=== PATIENT | male | born 1965 | race Two or more races ===

== ENCOUNTER 2016-12-28 01:57 | Emergency (ER) | payer OTHER, SELFPAY ==
[~2016-12-28] VITALS: Ht 182.9 cm; Wt 81.8 kg
[2016-12-28] MEDS ORDERED: KEPP1TAB2 PO (02:14)
[2016-12-28] MEDS ORDERED: ALLO100T PO (02:14)
[2016-12-28] MEDS ORDERED: LISI40TAB PO (02:14)
[2016-12-28] MEDS ORDERED: PRAV40TA2 PO (02:14)
[2016-12-28] MEDS ORDERED: METO1TAB32 PO (02:14)
[2016-12-28] MEDS ORDERED: MORPHINE 4 MG/ML 1ML SYRINGE SC ONE (04:45)
[2016-12-28] MEDS ORDERED: ONDANSETRON 4 MG ORAL DISINTEGRATING TAB (S0181) PO ONE (04:45)
[2016-12-28] MEDS ORDERED: METAL LOCK LOOP XX ONE (04:47)
[2016-12-28] MEDS ORDERED: LIDOCAINE W/EPINEPHRINE 1% 20ML VIAL As Ordered ONE (05:05)
[2016-12-28] MEDS ORDERED: BUPIVACAINE HCL 0.5% 10 ML VIAL As Ordered ONE (05:05)
[2016-12-28] MEDS ORDERED: NORCOTAB PO (06:02)
[2016-12-28] MEDS ORDERED: NORCO 5/325MG TABLET (BULK FOR ED) PO ONE (06:15)
[2016-12-28 06:20] VITALS: BP 137/83
== END 2016-12-28 06:21 | disposition home or self-care (01) ==
LOC: M ED 01:57
DX: S51.811A Laceration without foreign body of right forearm, initial encounter (principal); I10 Essential (primary) hypertension; E78.5 Hyperlipidemia, unspecified; R56.9 Unspecified convulsions; F17.210 Nicotine dependence, cigarettes, uncomplicated; W26.9XXA Contact with unspecified sharp object(s), initial encounter; Y92.010 Kitchen of single-family (private) house as the place of occurrence of the external cause; Y99.9 Unspecified external cause status; Y93.9 Activity, unspecified; Z79.899 Other long term (current) drug therapy; Z88.4 Allergy status to anesthetic agent

== ENCOUNTER 2017-02-02 01:29 | Emergency (ER) | payer OTHER ==
[~2017-02-02] VITALS: Ht 182.9 cm; Wt 81.8 kg
[~2017-02-02 01:29] MED LIST: ALLO100T PO; KEPP1TAB2 PO; LISI40TAB PO; METO1TAB32 PO; NORCOTAB PO; PRAV40TA2 PO
[2017-02-02 01:45] VITALS: BP 129/91
[2017-02-02] MEDS ORDERED: TIZA4CAP3 PO (01:48)
== END 2017-02-02 02:27 | disposition home or self-care (01) ==
LOC: M ED 01:29
DX: F41.8 Other specified anxiety disorders (principal); I10 Essential (primary) hypertension; G40.909 Epilepsy, unspecified, not intractable, without status epilepticus; Z79.899 Other long term (current) drug therapy; Z88.6 Allergy status to analgesic agent

== ENCOUNTER → 2017-03-23 | Outpatient (CLI) | payer OTHER ==
[~2017-03-23] MED LIST changes: +BUPIVACAINE HCL 0.25% 30 ML VIAL As Ordered ONE; +ISOVUE-M 300 61% 15ML VIAL (Q9967) As Ordered ONE; +TIZA4CAP3 PO; +TRIAMCINOLONE ACETONIDE SUSP 40 MG/ML VIAL (J3301) As Ordered ONE; +diazePAM 5 MG TAB As Ordered ONE; +oxyCODONE 5MG TAB As Ordered ONE
--- NOTE | 2017-03-23 16:57 | REP ---
FLUOROSCOPIC GUIDANCE: The images were reviewed with Dr. Baker. The patient has a history of low back pain. The portable C-ARM was provided in the OR by Dr. Solomon for fluoroscopic guidance. 4 intraoperative fluoroscopic spot films were obtained using last image hold technology for needle placement verification for left SI joint injection. The films are on the PACS system and are available for review. 15 seconds of fluoroscopic time was utilized for this procedure. Reviewed by NICOL Sandra 03/24/2017 02:47 PEdited and Signed by Esvin Baker MD 03/24/2017 05:03 P
--- NOTE | 2017-03-28 23:35 | ECWPNPC ---
PATIENT NAME: ELLY VILLALPANDO : 1965 GENDER: MALE VISIT DATE: 03/23/2017 DISCHARGE DATE: 03/23/17 1238 VISIT LOCKED DATE TIME: PHYSICIAN: GONZALEZ DICKERSON RESOURCE: GONZLAEZ DICKERSON REASON FOR APPOINTMENT 1. LEFT SIJ INJECTION HISTORY OF PRESENT ILLNESS HISTORY OF PRESENT ILLNESS: PAIN THE PATIENT DESCRIBES THE PAIN... FALL RISK SCREENING: SCREENING :NO FALLS IN THE PAST YEAR CURRENT MEDICATIONS TAKING ALLOPURINOL 100 MG TABLET 1 TABLET ORALLY TWICE A DAY, NOTES: 03-23-17699 TAKING AMLODIPINE BESYLATE 10 MG TABLET 1/2 TABLET ORALLY ONCE A DAY, NOTES: 03-23-17699 TAKING METOPROLOL SUCCINATE 50 MG TABLET EXTENDED RELEASE ORALLY DAILY, NOTES: OUT OF MED TAKING PRAVASTATIN SODIUM 40 MG TABLET 1 TABLET ORALLY ONCE A DAY, NOTES: [id number] TAKING TIZANIDINE HCL 2 MG TABLET 1 TABLET NEEDED ORALLY THREE TIMES A DAY, NOTES: [id number] TAKING GABAPENTIN 600 MG TABLET 1 TABLET ORALLY THREE TIMES A DAY, NOTES: 03-23-17699 TAKING LISINOPRIL 40 MG TABLET 1 TABLET ORALLY ONCE A DAY, NOTES: 03-23-17699 TAKING LEVETIRACETAM 500 MG TABLET 2 TABLETS ORALLY DAILY, NOTES: 03-22-172099 MEDICATION LIST REVIEWED AND RECONCILED WITH THE PATIENT PAST MEDICAL HISTORY HYPERTENSIVE CARDIAC VASCULAR DISEASE TACHYCARDIA MIXED HYPERLIPIDEMIA TRAUMATIC BRAIN INJURY R/T ENCEPHALITIS IN 10/2015 DJD OF LUMBAR SPINE ALLERGIES XYLOCAINE: INCREASED HR: ALLERGY SOCIAL HISTORY GENERAL: TOBACCO USE ARE YOU A:NONSMOKER ALCOHOL SCREENING DID YOU HAVE A DRINK CONTAINING ALCOHOL IN THE PAST YEAR?YES HOW OFTEN DID YOU HAVE A DRINK CONTAINING ALCOHOL IN THE PAST YEAR?FOUR OR MORE TIMES A WEEK (4 POINTS) HOW MANY DRINKS DID YOU HAVE ON A TYPICAL DAY WHEN YOU WERE DRINKING IN THE PAST YEAR?3 OR 4 (1 POINT) HOW OFTEN DID YOU HAVE SIX OR MORE DRINKS ON ONE OCCASION IN THE PAST YEAR?MONTHLY (2 POINTS) POINTS7 INTERPRETATIONPOSITIVE RECREATIONAL DRUG USE DRUG USE?NO JEW [id number] CONGREGATIONAL LANGUAGE LANGUAGES SPOKEN:FRENCH LEARNING BARRIERS / SPECIAL NEEDS BARRIERS TO LEARNING?NO HEARING IMPAIRED?NO VISION IMPAIRED?NO COGNITIVELY IMPAIRED?NO READINESS TO LEARN?YES LEARNING PREFERENCES?NO LEARNING CAPABILITIES PRESENT?YES EMOTIONAL BARRIERS?NO SPECIAL DEVICES?NO PAINTER SUPERVISOR NEEDED?NO PAIN CLINIC PFS, CLERGY, PUBLIC HEALTH REFERRALS PFS REFERRAL NEEDED?NO CLERGY REFERRAL NEEDED?NO PUBLIC HEALTH REFERRAL NEEDED?NO HAS THE PATIENT BEEN EDUCATED REGARDING HIS/HER PLAN OF CARE?YES HAS THE PATIENT BEEN EDUCATED REGARDING PAIN, THE RISK FOR PAIN, THE IMPORTANCE OF EFFECTIVE PAIN MANAGEMENT, AND THE PAIN ASSESSMENT PROCESS?YES ADVANCE DIRECTIVES HEALTH CARE PROXY?NO WOULD YOU LIKE MORE INFORMATION?NO DO YOU HAVE A DNR?NO WOULD YOU LIKE MORE INFORMATION?NO LIVING WILL?NO WOULD YOU LIKE MORE INFORMATION?NO POWER OF DIGITAL EXPERIENCE MANAGER?NO WOULD YOU LIKE MORE INFORMATION?NO DOMESTIC VIOLENCE DO YOU FEEL SAFE IN YOUR ENVIRONMENT?YES REVIEW OF SYSTEMS REVIEWED BY: PROVIDER: . CONSTITUTIONAL: ANY CHANGE IN YOUR MEDICAL CONDITION? NO . CHILLS NO . FEVER NO . INFECTION: DO YOU HAVE NEW INFECTIONS? NO . DO YOU HAVE HISTORY OF MRSA? NO . MUSCULOSKELETAL: ANY NEW PATTERNS OF PAIN OR NUMBNESS? NO . GASTROENTEROLOGY: ANY NEW CHANGE IN BOWEL CONTROL? NO . GENITOURINARY: ANY NEW CHANGE IN BLADDER CONTROL? NO . IS THERE A CHANCE YOU COULD BE ? NO . HEMATOLOGY/LYMPH: DO YOU TAKE ANY BLOOD THINNERS? (FOR EXAMPLE- COUMADIN, PLAVIX, AGGRENOX, PLATEL, PRADAXA, OR XARELTO) NO . WHEN WAS YOUR LAST DOSE? DATE: TIME: . NEUROLOGY: HAVE YOU FALLEN IN THE PAST 6 MONTHS? YES . ANY NEW EXTREMITY NUMBNESS OR WEAKNESS? NO . CARDIOLOGY: DO YOU HAVE A PACEMAKER OR DEFIBRILLATOR? NO . RESPIRATORY: HAVE YOU BEEN SICK IN THE PAST WEEK? NO . FEVER NO . FLU LIKE SYMPTOMS? NO . COUGH NO . INTEGUMENTARY: DO YOU HAVE ANY RASHES OR OPEN SORES? YES, RASH FROM TENS UNIT PATCHES ON BUTTUCKS . ALLERGIC/IMMUNO: ARE YOU ALLERGIC TO SHELLFISH OR IV DYE? NO . ANY NEW ALLERGIES? NO . PSYCHIATRIC: DO YOU HAVE THOUGHTS OF HURTING YOURSELF OR SOMEONE ELSE? NO . ARE YOU ABUSED, NEGLECTED, OR IN AN UNSAFE ENVIRONMENT? NO . ENDOCRINOLOGY: ARE YOU DIABETIC? NO . OTHER: DO YOU NEED ANY PRESCRIPTIONS? NO . IF YES, PLEASE LIST: ____ . ANY NEW PROBLEMS WITH YOUR MEDICATIONS? NO . WHEN DID YOU LAST EAT? 7PM . WHEN DID YOU LAST DRINK? 03-23-17 0845 . WHAT DID YOU LAST DRINK? WATER . NAME OF PERSON DRIVING YOU HOME? PABLO ESPINOSA . DO YOU HAVE ANY OTHER QUESTIONS OR CONCERNS NO . VITAL SIGNS WT 198.4 LBS, HT 60 IN, BMI 38.74 INDEX, BP 140/80 MM HG, HR 78 /MIN, RR 18 /MIN, TEMP 98.5 F, OXYGEN SAT % 100%, NA INITIALS SC 10:54, REVIEWED BY: CM. ASSESSMENTS SACROILIITIS, NOT ELSEWHERE CLASSIFIED - M46.1 (PRIMARY) PROCEDURES PN SI PRE PROCEDURE DIAGNOSIS SACROILIITIS, SACROILIAC JOINT DYSFUNCTION POST PROCEDURE DIAGNOSIS SACROILIITIS, SACROILIAC JOINT DYSFUNCTION PROCEDURE LEFT SACROILIAC JOINT BLOCK SURGEON DR. GONZALEZ DICKERSON MACHINE TRACER NONE ANESTHESIA LOCAL PRE PROCEDURE NOTE PATIENT WITH HISTORY OF CHRONIC LOW BACK PAIN. I EVALUATED THE PATIENT AND REVIEWED THE CHART. I WENT OVER THE RISKS, ALTERNATIVES, AND BENEFITS ASSOCIATED WITH THIS PROCEDURE. THE PATIENT WOULD LIKE TO PROCEED AND GAVE CONSENT TO PERFORM THE PROCEDURE. THE PATIENT DENIES UNEXPLAINABLE WEIGHT LOSS, FEVER, CHILLS, OR NEW CHANGES IN URINARY OR BOWEL CONTROL DESCRIPTION OF PROCEDURE THE PATIENT WAS BROUGHT TO THE PROCEDURE ROOM AND PLACED IN THE PRONE POSITION. THE LUMBOSACRAL AREA WAS CLEANED WITH CHLORAPREP SOLUTION AND DRAPED ASEPTICALLY. THE PROCEDURE WAS DONE UNDER STERILE CONDITIONS. I CHECKED LATERALITY AND THE LEVEL WHERE THE PROCEDURE WAS GOING TO BE PERFORMED WITH THE PATIENT AND THE SUPPORTING STAFF AT THE MOMENT OF THE TIME OUT IN THE PROCEDURE ROOM. UNDER FLUOROSCOPIC GUIDANCE, TARGET POINT WAS SELECTED AT THE LOWER BORDER OF THE LEFT SACROILIAC JOINT. TARGET POINT WAS SELECTED AFTER MEDIAL ROTATION AND TILT OF THE MAGNIFIER OF THE C-ARM. LIDOCAINE WAS USED TO NUMB THE SKIN AND SUBCUTANEOUS TISSUE BELOW IT. A SPINAL NEEDLE, 22-GAUGE, WAS ADVANCED UNDER FLUOROSCOPIC GUIDANCE AND FOLLOWING PATIENT FEEDBACK UNTIL THE TARGET AREA WAS TOUCHED. THE POSITION OF THE NEEDLE WAS VERIFIED WITH AP AND LATERAL VIEWS. AFTER PROPER POSITION OF THE NEEDLE WAS ACHIEVED, ISOVUE M DYE 30%, 0.25 ML, WAS INJECTED SHOWING SPREAD OF THE DYE. THEN, A SOLUTION OF 20 MG OF KENALOG WAS INJECTED IN RIGHT JOINT WITH 3 ML OF BUPIVACAINE 0.125%. THERE WAS NO EVIDENCE OF BLOOD, PARESTHESIA OR CEREBROSPINAL FLUID DURING THE PROCEDURE. THE PATIENT WAS SENT TO THE RECOVERY ROOM. THE PATIENT WAS MOVING THE EXTREMITIES AND DOING WELL. THERE WAS NO COMPLICATION DURING THE PROCEDURE. FLUOROSCOPY TIME WAS 17 SECONDS POST PROCEDURE NOTE THE PATIENT WILL BE SEEN IN A FOLLOW UP IN THE NEXT FEW WEEKS. INSTRUCTIONS WERE GIVEN, QUESTIONS WERE ANSWERED, AND THE PATIENT EXPRESSED UNDERSTANDING AND AGREED WITH THE PLAN. I, LUIS TOBAR, DOCUMENTED THE ABOVE INFORMATION ACTING A SCRIBE FOR DR. DICKERSON. I HAVE REVIEWED THE ABOVE DOCUMENT, WRITTEN BY LUIS TOBAR SCRIBE AND I VERIFY THAT IT IS ACCURATE DIAGNOSTIC IMAGING [facility] FLUORO GUIDANCE (PAIN)[id number] PROCEDURE CODES 12913 INJECT SACROILIAC JOINT, MODIFIERS: LT 6045F RADXPS IN END [id number] PXD DISPOSITION & COMMUNICATION FOLLOW UP 3 WEEKS ELECTRONICALLY SIGNED BY GONZALEZ DICKERSON MD ON 03/28/2017 AT 01:34 PM EDT DISCLAIMER : THIS IS A VISIT SUMMARY EXTRACTED FROM THE [employer] CHART. IT IS NOT A COPY OF THE [employer] PROGRESS NOTE. MTDD
== END ==
LOC: M PAIN 10:45
PROVIDERS: ATTEND Anesthesiology
DX: G89.29 Other chronic pain (principal); M46.1 Sacroiliitis, not elsewhere classified; M53.88 Other specified dorsopathies, sacral and sacrococcygeal region; I11.9 Hypertensive heart disease without heart failure; E78.2 Mixed hyperlipidemia; Z88.8 Allergy status to other drugs, medicaments and biological substances; Z79.899 Other long term (current) drug therapy; Z87.820 Personal history of traumatic brain injury
CPT/HCPCS: G0260; J3301; Q9967

== ENCOUNTER → 2017-04-06 | Outpatient (CLI) | payer OTHER ==
[~2017-04-06] MED LIST changes: -BUPIVACAINE HCL 0.25% 30 ML VIAL As Ordered ONE; -ISOVUE-M 300 61% 15ML VIAL (Q9967) As Ordered ONE; -TRIAMCINOLONE ACETONIDE SUSP 40 MG/ML VIAL (J3301) As Ordered ONE; -diazePAM 5 MG TAB As Ordered ONE; -oxyCODONE 5MG TAB As Ordered ONE
--- NOTE | 2017-04-26 00:21 | ECWPNPC ---
PATIENT NAME: ELLY VILLALPANDO : 1965 GENDER: MALE VISIT DATE: 04/06/2017 DISCHARGE DATE: 04/06/17 1452 VISIT LOCKED DATE TIME: PHYSICIAN: DENICE EDEN RESOURCE: DENICE EDEN REASON FOR APPOINTMENT 1. POST PROC HISTORY OF PRESENT ILLNESS HISTORY OF PRESENT ILLNESS: HERE FOR POST PROCEDURE F/U.HAD LEFT SIJ ON 03/23/17.REPORTS 2 DAYS OF IMPROVEMENT THEN PAIN RETURNED TO BASELINE.RATING PAIN VAS 7/10 VAS.PAIN IS LOCATED LEFT LOW BACK.DESCRIBES PAIN STABBING. PAIN THE PATIENT DESCRIBES THE PAIN... FALL RISK SCREENING: SCREENING :NO FALLS IN THE PAST YEAR CURRENT MEDICATIONS TAKING ALLOPURINOL 100 MG TABLET 1 TABLET ORALLY TWICE A DAY TAKING AMLODIPINE BESYLATE 10 MG TABLET 1/2 TABLET ORALLY ONCE A DAY TAKING METOPROLOL SUCCINATE 50 MG TABLET EXTENDED RELEASE ORALLY DAILY TAKING PRAVASTATIN SODIUM 40 MG TABLET 1 TABLET ORALLY ONCE A DAY TAKING TIZANIDINE HCL 2 MG TABLET 1 TABLET NEEDED ORALLY THREE TIMES A DAY TAKING GABAPENTIN 600 MG TABLET 1 TABLET ORALLY THREE TIMES A DAY TAKING LISINOPRIL 40 MG TABLET 1 TABLET ORALLY ONCE A DAY TAKING LEVETIRACETAM 500 MG TABLET 2 TABLETS ORALLY DAILY MEDICATION LIST REVIEWED AND RECONCILED WITH THE PATIENT PAST MEDICAL HISTORY HYPERTENSIVE CARDIAC VASCULAR DISEASE TACHYCARDIA MIXED HYPERLIPIDEMIA TRAUMATIC BRAIN INJURY R/T ENCEPHALITIS IN 10/2015 DJD OF LUMBAR SPINE ALLERGIES XYLOCAINE: INCREASED HR: ALLERGY SURGICAL HISTORY FISTULA REPAIR 1983 FAMILY HISTORY FATHER: , DIAGNOSED WITH HYPERTENSION MOTHER: , DIAGNOSED WITH CANCER 2 BROTHER(S) - HEALTHY. 1 SON(S) - HEALTHY. SOCIAL HISTORY GENERAL: TOBACCO USE ARE YOU A:NONSMOKER ALCOHOL SCREENING DID YOU HAVE A DRINK CONTAINING ALCOHOL IN THE PAST YEAR?YES HOW OFTEN DID YOU HAVE A DRINK CONTAINING ALCOHOL IN THE PAST YEAR?FOUR OR MORE TIMES A WEEK (4 POINTS) HOW MANY DRINKS DID YOU HAVE ON A TYPICAL DAY WHEN YOU WERE DRINKING IN THE PAST YEAR?3 OR 4 (1 POINT) HOW OFTEN DID YOU HAVE SIX OR MORE DRINKS ON ONE OCCASION IN THE PAST YEAR?MONTHLY (2 POINTS) POINTS7 INTERPRETATIONPOSITIVE RECREATIONAL DRUG USE DRUG USE?NO DENOMINATIONAL [id number] QUAKER LANGUAGE LANGUAGES SPOKEN:TURKISH LEARNING BARRIERS / SPECIAL NEEDS BARRIERS TO LEARNING?NO HEARING IMPAIRED?NO VISION IMPAIRED?NO COGNITIVELY IMPAIRED?NO READINESS TO LEARN?YES LEARNING PREFERENCES?NO LEARNING CAPABILITIES PRESENT?YES EMOTIONAL BARRIERS?NO SPECIAL DEVICES?NO RN PATIENT CARE NEEDED?NO PAIN CLINIC PFS, CLERGY, PUBLIC HEALTH REFERRALS PFS REFERRAL NEEDED?NO CLERGY REFERRAL NEEDED?NO PUBLIC HEALTH REFERRAL NEEDED?NO HAS THE PATIENT BEEN EDUCATED REGARDING HIS/HER PLAN OF CARE?YES HAS THE PATIENT BEEN EDUCATED REGARDING PAIN, THE RISK FOR PAIN, THE IMPORTANCE OF EFFECTIVE PAIN MANAGEMENT, AND THE PAIN ASSESSMENT PROCESS?YES ADVANCE DIRECTIVES HEALTH CARE PROXY?NO WOULD YOU LIKE MORE INFORMATION?NO DO YOU HAVE A DNR?NO WOULD YOU LIKE MORE INFORMATION?NO LIVING WILL?NO WOULD YOU LIKE MORE INFORMATION?NO POWER OF WEB APPLICATION DEV SPECIALIST?NO WOULD YOU LIKE MORE INFORMATION?NO DOMESTIC VIOLENCE DO YOU FEEL SAFE IN YOUR ENVIRONMENT?YES HOSPITALIZATION/MAJOR DIAGNOSTIC PROCEDURE ENCEPHALITIS 10/2015 REVIEW OF SYSTEMS REVIEWED BY: PROVIDER: DENICE VALENCIA . CONSTITUTIONAL: ANY CHANGE IN YOUR MEDICAL CONDITION? NO . CHILLS NO . FEVER NO . INFECTION: DO YOU HAVE NEW INFECTIONS? NO . DO YOU HAVE HISTORY OF MRSA? NO . MUSCULOSKELETAL: ANY NEW PATTERNS OF PAIN OR NUMBNESS? NO . GASTROENTEROLOGY: ANY NEW CHANGE IN BOWEL CONTROL? NO . GENITOURINARY: ANY NEW CHANGE IN BLADDER CONTROL? NO . IS THERE A CHANCE YOU COULD BE ? NO . HEMATOLOGY/LYMPH: DO YOU TAKE ANY BLOOD THINNERS? (FOR EXAMPLE- COUMADIN, PLAVIX, AGGRENOX, PLATEL, PRADAXA, OR XARELTO) NO . WHEN WAS YOUR LAST DOSE? DATE: TIME: . NEUROLOGY: HAVE YOU FALLEN IN THE PAST 6 MONTHS? YES . ANY NEW EXTREMITY NUMBNESS OR WEAKNESS? NO . CARDIOLOGY: DO YOU HAVE A PACEMAKER OR DEFIBRILLATOR? NO . RESPIRATORY: HAVE YOU BEEN SICK IN THE PAST WEEK? NO . FEVER NO . FLU LIKE SYMPTOMS? NO . COUGH NO . INTEGUMENTARY: DO YOU HAVE ANY RASHES OR OPEN SORES? NO . ALLERGIC/IMMUNO: ARE YOU ALLERGIC TO SHELLFISH OR IV DYE? NO . ANY NEW ALLERGIES? NO . PSYCHIATRIC: DO YOU HAVE THOUGHTS OF HURTING YOURSELF OR SOMEONE ELSE? NO . ARE YOU ABUSED, NEGLECTED, OR IN AN UNSAFE ENVIRONMENT? NO . ENDOCRINOLOGY: ARE YOU DIABETIC? NO . OTHER: DO YOU NEED ANY PRESCRIPTIONS? NO . IF YES, PLEASE LIST: ____ . ANY NEW PROBLEMS WITH YOUR MEDICATIONS? YES . WHEN DID YOU LAST EAT? ____ . WHEN DID YOU LAST DRINK? ____ . WHAT DID YOU LAST DRINK? ____ . NAME OF PERSON DRIVING YOU HOME? ____ . DO YOU HAVE ANY OTHER QUESTIONS OR CONCERNS NO . VITAL SIGNS WT 195.8 LBS, HT 60 IN, BMI 38.24 INDEX, BP 155/90 MM HG, HR 78 /MIN, RR 16 /MIN, TEMP 97.9 F, OXYGEN SAT % 98%, NA INITIALS TL 1339, REVIEWED BY: KRYSTIAN. ASSESSMENTS SACROILIAC JOINT PAIN - M53.3 (PRIMARY) PROTRUDED LUMBAR DISC - M51.26 LUMBAR RADICULOPATHY - M54.16 TREATMENT SACROILIAC JOINT PAIN NOTES: INTRALAMINAL LESI,WHAT IS LUMBAR EPIDURAL INJECTION? MATERIAL WAS PRINTED,LUMBAR EPIDURAL INJECTION: YOUR PROCEDURE MATERIAL WAS PRINTED,LUMBAR EPIDURAL INJECTION: RECOVERY AT HOME MATERIAL WAS PRINTED. PROCEDURE CODES FA211 ESTABILISHED PATIENT [facility] CHARGE DISPOSITION & COMMUNICATION FOLLOW UP 2WK POST (REASON: INTRALAMINAL LESI) ELECTRONICALLY SIGNED BY ERIK JACINTO ON 04/25/2017 AT 03:35 PM EST DISCLAIMER : THIS IS A VISIT SUMMARY EXTRACTED FROM THE [employer] CHART. IT IS NOT A COPY OF THE [employer] PROGRESS NOTE. KIANA
== END ==
LOC: M PAIN 13:30
PROVIDERS: ATTEND Nurse Practitioner Family
DX: M53.3 Sacrococcygeal disorders, not elsewhere classified (principal); M51.26 Other intervertebral disc displacement, lumbar region; M54.16 Radiculopathy, lumbar region; I10 Essential (primary) hypertension; E78.5 Hyperlipidemia, unspecified; Z87.828 Personal history of other (healed) physical injury and trauma; Z88.8 Allergy status to other drugs, medicaments and biological substances; Z79.899 Other long term (current) drug therapy

== ENCOUNTER → 2017-04-14 | Outpatient (CLI) | payer OTHER ==
[~2017-04-14] MED LIST changes: +BUPIVACAINE HCL 0.25% 30 ML VIAL As Ordered ONE; +ISOVUE-M 300 61% 15ML VIAL (Q9967) As Ordered ONE; +LIDOCAINE 1% SDV INJ 30 ML VIAL As Ordered ONE; +diazePAM 5 MG TAB As Ordered ONE; +methylPREDNISolone SUSP 40 MG/ML (DEPO-medrol) VIAL (J1030) As Ordered ONE; +oxyCODONE 5MG TAB As Ordered ONE
--- NOTE | 2017-04-15 05:40 | REP ---
FLUOROSCOPIC GUIDANCE LUMBAR EPIDURAL INJECTION: 04/14/2017. Comparison: None. Clinical history: Back pain. Findings: Three views from C-arm fluoroscopy provided to Dr. Solomon for fluoroscopic-guided lumbar epidural injection shows a needle to the left of midline at L5-S1. Epidural contrast seen adjacent to that needle on the second image with the needle removed on the third image. Fluoroscopy time: 14 seconds. Signed by Yuval Frias MD 04/15/2017 10:02 A
--- NOTE | 2017-04-19 23:55 | ECWPNPC ---
PATIENT NAME: ELLY VILLALPANDO : 1965 GENDER: MALE VISIT DATE: 04/14/2017 DISCHARGE DATE: 04/14/17 1414 VISIT LOCKED DATE TIME: PHYSICIAN: GONZALEZ DICKERSON RESOURCE: GONZALEZ DICKERSON REASON FOR APPOINTMENT 1. INTERLAMINAL LE HISTORY OF PRESENT ILLNESS HISTORY OF PRESENT ILLNESS: PAIN THE PATIENT DESCRIBES THE PAIN... FALL RISK SCREENING: SCREENING :NO FALLS IN THE PAST YEAR CURRENT MEDICATIONS TAKING ALLOPURINOL 100 MG TABLET 1 TABLET ORALLY TWICE A DAY, NOTES: 04/14 900 TAKING AMLODIPINE BESYLATE 10 MG TABLET 1/2 TABLET ORALLY ONCE A DAY, NOTES: 04/14 900 TAKING METOPROLOL SUCCINATE 50 MG TABLET EXTENDED RELEASE ORALLY DAILY, NOTES: 04/14 900 TAKING PRAVASTATIN SODIUM 40 MG TABLET 1 TABLET ORALLY ONCE A DAY, NOTES: 04/13 2000 TAKING TIZANIDINE HCL 2 MG TABLET 1 TABLET NEEDED ORALLY THREE TIMES A DAY, NOTES: 04/13 2000 TAKING GABAPENTIN 600 MG TABLET 1 TABLET ORALLY THREE TIMES A DAY, NOTES: 04/14 900 TAKING LISINOPRIL 40 MG TABLET 1 TABLET ORALLY ONCE A DAY, NOTES: 04/14 900 TAKING LEVETIRACETAM 500 MG TABLET 2 TABLETS ORALLY DAILY, NOTES: 04/13 2000 MEDICATION LIST REVIEWED AND RECONCILED WITH THE PATIENT PAST MEDICAL HISTORY HYPERTENSIVE CARDIAC VASCULAR DISEASE TACHYCARDIA MIXED HYPERLIPIDEMIA TRAUMATIC BRAIN INJURY R/T ENCEPHALITIS IN 10/2015 DJD OF LUMBAR SPINE ALLERGIES XYLOCAINE: INCREASED HR: ALLERGY SOCIAL HISTORY GENERAL: TOBACCO USE ARE YOU A:NONSMOKER ALCOHOL SCREENING DID YOU HAVE A DRINK CONTAINING ALCOHOL IN THE PAST YEAR?YES HOW OFTEN DID YOU HAVE A DRINK CONTAINING ALCOHOL IN THE PAST YEAR?FOUR OR MORE TIMES A WEEK (4 POINTS) HOW MANY DRINKS DID YOU HAVE ON A TYPICAL DAY WHEN YOU WERE DRINKING IN THE PAST YEAR?3 OR 4 (1 POINT) HOW OFTEN DID YOU HAVE SIX OR MORE DRINKS ON ONE OCCASION IN THE PAST YEAR?MONTHLY (2 POINTS) POINTS7 INTERPRETATIONPOSITIVE RECREATIONAL DRUG USE DRUG USE?NO SIKHISM [id number] EPISCOPALIAN LANGUAGE LANGUAGES SPOKEN:THAI LEARNING BARRIERS / SPECIAL NEEDS BARRIERS TO LEARNING?NO HEARING IMPAIRED?NO VISION IMPAIRED?NO COGNITIVELY IMPAIRED?NO READINESS TO LEARN?YES LEARNING PREFERENCES?NO LEARNING CAPABILITIES PRESENT?YES EMOTIONAL BARRIERS?NO SPECIAL DEVICES?NO BILLING SPECIALIST NEEDED?NO PAIN CLINIC PFS, CLERGY, PUBLIC HEALTH REFERRALS PFS REFERRAL NEEDED?NO CLERGY REFERRAL NEEDED?NO PUBLIC HEALTH REFERRAL NEEDED?NO HAS THE PATIENT BEEN EDUCATED REGARDING HIS/HER PLAN OF CARE?YES HAS THE PATIENT BEEN EDUCATED REGARDING PAIN, THE RISK FOR PAIN, THE IMPORTANCE OF EFFECTIVE PAIN MANAGEMENT, AND THE PAIN ASSESSMENT PROCESS?YES REVIEWED BY: 04/14/17 1235 AD. ADVANCE DIRECTIVES HEALTH CARE PROXY?NO WOULD YOU LIKE MORE INFORMATION?NO DO YOU HAVE A DNR?NO WOULD YOU LIKE MORE INFORMATION?NO LIVING WILL?NO WOULD YOU LIKE MORE INFORMATION?NO POWER OF CARDIAC CATH RN?NO WOULD YOU LIKE MORE INFORMATION?NO DOMESTIC VIOLENCE DO YOU FEEL SAFE IN YOUR ENVIRONMENT?YES REVIEW OF SYSTEMS REVIEWED BY: PROVIDER: . CONSTITUTIONAL: ANY CHANGE IN YOUR MEDICAL CONDITION? NO . CHILLS NO . FEVER NO . INFECTION: DO YOU HAVE NEW INFECTIONS? NO . DO YOU HAVE HISTORY OF MRSA? NO . MUSCULOSKELETAL: ANY NEW PATTERNS OF PAIN OR NUMBNESS? NO . GASTROENTEROLOGY: ANY NEW CHANGE IN BOWEL CONTROL? NO . GENITOURINARY: ANY NEW CHANGE IN BLADDER CONTROL? NO . IS THERE A CHANCE YOU COULD BE ? NO . HEMATOLOGY/LYMPH: DO YOU TAKE ANY BLOOD THINNERS? (FOR EXAMPLE- COUMADIN, PLAVIX, AGGRENOX, PLATEL, PRADAXA, OR XARELTO) NO . WHEN WAS YOUR LAST DOSE? DATE: TIME: . NEUROLOGY: HAVE YOU FALLEN IN THE PAST 6 MONTHS? YES, APPROX A MONTH AGO LOST HIS BALANCE. NO INJURY, NOT SEEN. . ANY NEW EXTREMITY NUMBNESS OR WEAKNESS? NO . CARDIOLOGY: DO YOU HAVE A PACEMAKER OR DEFIBRILLATOR? NO . RESPIRATORY: HAVE YOU BEEN SICK IN THE PAST WEEK? NO . FEVER NO . FLU LIKE SYMPTOMS? NO . COUGH NO . INTEGUMENTARY: DO YOU HAVE ANY RASHES OR OPEN SORES? NO . ALLERGIC/IMMUNO: ARE YOU ALLERGIC TO SHELLFISH OR IV DYE? NO . ANY NEW ALLERGIES? NO . PSYCHIATRIC: DO YOU HAVE THOUGHTS OF HURTING YOURSELF OR SOMEONE ELSE? NO . ARE YOU ABUSED, NEGLECTED, OR IN AN UNSAFE ENVIRONMENT? NO . ENDOCRINOLOGY: ARE YOU DIABETIC? NO . OTHER: DO YOU NEED ANY PRESCRIPTIONS? NO . IF YES, PLEASE LIST: ____ . ANY NEW PROBLEMS WITH YOUR MEDICATIONS? NO . WHEN DID YOU LAST EAT? 04/13 2000 . WHEN DID YOU LAST DRINK? 11/8 1000 . WHAT DID YOU LAST DRINK? WATER . NAME OF PERSON DRIVING YOU HOME? TAD LIMA . DO YOU HAVE ANY OTHER QUESTIONS OR CONCERNS PT. HAS NOT HAD A FLU OR PNEUMONIA VACCINE . VITAL SIGNS WT 191 LBS, HT 60 IN, BMI 37.30 INDEX, BP 114/67 MM HG, HR 63 /MIN, RR 18 /MIN, TEMP 97.6 F, OXYGEN SAT % 99%, SAFE IN ENV? (Y/N) Y, NA INITIALS NJ 11:49, REVIEWED BY: AD. ASSESSMENTS INTERVERTEBRAL DISC DISORDER WITH RADICULOPATHY OF LUMBOSACRAL REGION - M51.17 (PRIMARY) PROCEDURES PRE PROCEDURE DIAGNOSIS LUMBOSACRAL DISC DISORDER WITH RADICULOPATHY POST PROCEDURE DIAGNOSIS LUMBOSACRAL DISC DISORDER WITH RADICULOPATHY PROCEDURE LUMBAR EPIDURAL STEROID INJECTION UNDER FLUOROSCOPIC GUIDANCE SURGEON DR. GONZALEZ DICKERSON ALUMINUM WELDER NONE ANESTHESIA LOCAL PRE PROCEDURE NOTE THE PATIENT HAS A HISTORY OF CHRONIC LOW BACK PAIN. I EVALUATE THE PATIENT AND REVIEWED THE CHART. I WENT OVER THE RISKS, ALTERNATIVES, AND BENEFITS ASSOCIATED WITH THIS PROCEDURE. THE PATIENT WOULD LIKE TO PROCEED AND GIVE CONSENT TO PERFORMED THE PROCEDURE. THE PATIENT DENIES UNEXPLAINABLE WEIGHT LOSS, FEVER, CHILLS, OR NEW CHANGES IN URINARY OR BOWEL CONTROL. DESCRIPTION OF PROCEDURE THE PATIENT WAS BROUGHT TO THE PROCEDURE ROOM AND PLACED IN THE PRONE POSITION. THE LUMBOSACRAL AREA WAS CLEANED WITH BETADINE SOLUTION AND DRAPED ASEPTICALLY. THE PROCEDURE WAS DONE UNDER STERILE CONDITIONS. I CHECKED LATERALITY AND THE LEVEL WHERE THE PROCEDURE WAS GOING TO BE PERFORMED WITH THE PATIENT AND THE SUPPORTING STAFF AT THE MOMENT OF THE TIME OUT IN THE PROCEDURE ROOM. UNDER FLUOROSCOPIC GUIDANCE, THE TARGET POINT WAS SELECTED AT THE INTERLAMINAR LEVEL OF L5-S1. BUPI .25% WAS USED TO NUMB THE SKIN AND THE SUBCUTANEOUS TISSUE BELOW IT. EPIDURAL TUOHY NEEDLE, 17-GAUGE, WAS ADVANCED UNDER FLUOROSCOPIC GUIDANCE AND FOLLOWING PATIENT FEEDBACK UNTIL THE EPIDURAL SPACE WAS REACHED, 7 CM DEEP INTO THE SKIN BY THE LOSS OF RESISTANCE TECHNIQUE. ISOVUE M DYE 30%, 0.25 ML, WAS INJECTED SHOWING ADEQUATE SPREAD OF THE DYE. THEN, A SOLUTION OF 3 ML OF NORMAL SALINE WITH DEPO-MEDROL 60 MG WAS INJECTED SLOWLY FOLLOWING PATIENT FEEDBACK. THERE WAS NO EVIDENCE OF BLOOD, PARESTHESIA OR CEREBROSPINAL FLUID DURING THE PROCEDURE. THE PATIENT WAS SENT TO THE RECOVERY ROOM. THE PATIENT WAS MOVING THE EXTREMITIES AND DOING WELL. THERE WAS NO COMPLICATION DURING THE PROCEDURE. FLUOROSCOPY TIME WAS 14 SECONDS. POST PROCEDURE NOTE THE PATIENT WILL BE SEEN IN A FOLLOW UP IN THE NEXT FEW WEEKS. INSTRUCTIONS WERE GIVEN, QUESTIONS WERE ANSWERED, AND THE PATIENT EXPRESSED UNDERSTANDING AND AGREES WITH THE PLAN. I, LUIS TOBAR, DOCUMENTED THE ABOVE INFORMATION ACTING A SCRIBE FOR DR. DICKERSON. I HAVE REVIEWED THE ABOVE DOCUMENT, WRITTEN BY LUIS CRESPOIBDallas AND I VERIFY THAT IT IS ACCURATE DIAGNOSTIC IMAGING [facility] FLUORO GUIDE SPINE INJECTION (PAIN)[id number] PROCEDURE CODES 74221 LUMBAR/SACRAL W/ IMAGING 6045F RADXPS IN END [id number] PXD DISPOSITION & COMMUNICATION FOLLOW UP 2 WEEKS ELECTRONICALLY SIGNED BY GONZALEZ DICKERSON MD ON 04/19/2017 AT 10:32 AM EST DISCLAIMER : THIS IS A VISIT SUMMARY EXTRACTED FROM THE [email or web address] CHART. IT IS NOT A COPY OF THE [employer] PROGRESS NOTE. MTDKarla
== END ==
LOC: M PAIN 11:30
PROVIDERS: ATTEND Anesthesiology
DX: G89.29 Other chronic pain (principal); M51.17 Intervertebral disc disorders with radiculopathy, lumbosacral region; I11.9 Hypertensive heart disease without heart failure; E78.2 Mixed hyperlipidemia; Z88.1 Allergy status to other antibiotic agents; Z79.899 Other long term (current) drug therapy; Z87.820 Personal history of traumatic brain injury
CPT/HCPCS: 62323; J1030; Q9967

== ENCOUNTER → 2017-05-04 | Outpatient (CLI) | payer OTHER ==
[~2017-05-04] MED LIST changes: -BUPIVACAINE HCL 0.25% 30 ML VIAL As Ordered ONE; -ISOVUE-M 300 61% 15ML VIAL (Q9967) As Ordered ONE; -LIDOCAINE 1% SDV INJ 30 ML VIAL As Ordered ONE; -diazePAM 5 MG TAB As Ordered ONE; -methylPREDNISolone SUSP 40 MG/ML (DEPO-medrol) VIAL (J1030) As Ordered ONE; -oxyCODONE 5MG TAB As Ordered ONE
== END ==
LOC: M PAIN 13:30
PROVIDERS: ATTEND Nurse Practitioner Family
DX: Z53.29 Procedure and treatment not carried out because of patient's decision for other reasons (principal)

== ENCOUNTER → 2017-05-14 | Outpatient (CLI) | payer OTHER | LOC: M PAIN 14:15 | DX: G89.29 Other chronic pain (principal); M53.3 Sacrococcygeal disorders, not elsewhere classified; M51.26 Other intervertebral disc displacement, lumbar region; M54.16 Radiculopathy, lumbar region; I11.9 Hypertensive heart disease without heart failure; E78.2 Mixed hyperlipidemia; Z87.820 Personal history of traumatic brain injury; Z88.8 Allergy status to other drugs, medicaments and biological substances; Z79.899 Other long term (current) drug therapy | CPT/HCPCS: G0463 ==

== ENCOUNTER → 2017-05-27 | Outpatient (CLI) | payer OTHER ==
[~2017-05-27] MED LIST changes: -ALLO100T PO; +BUPIVACAINE HCL 0.25% 30 ML VIAL As Ordered; +ISOVUE-M 300 61% 15ML VIAL (Q9967) As Ordered; -KEPP1TAB2 PO; +LIDOCAINE 1% SDV INJ 30 ML VIAL As Ordered; -LISI40TAB PO; -METO1TAB32 PO; -NORCOTAB PO; -PRAV40TA2 PO; -TIZA4CAP3 PO; +TRIAMCINOLONE ACETONIDE SUSP 40 MG/ML VIAL (J3301) As Ordered; +diazePAM 5 MG TAB As Ordered; +oxyCODONE 5MG TAB As Ordered
== END ==
LOC: M PAIN 10:45
DX: G89.29 Other chronic pain (principal); M46.1 Sacroiliitis, not elsewhere classified; I10 Essential (primary) hypertension; E78.2 Mixed hyperlipidemia; R00.0 Tachycardia, unspecified; Z79.899 Other long term (current) drug therapy; Z88.8 Allergy status to other drugs, medicaments and biological substances; Z87.820 Personal history of traumatic brain injury
CPT/HCPCS: J3301

== ENCOUNTER → 2017-06-09 | Outpatient (CLI) | payer OTHER | LOC: M PAIN 14:00 | DX: M53.3 Sacrococcygeal disorders, not elsewhere classified (principal); M51.26 Other intervertebral disc displacement, lumbar region; M54.16 Radiculopathy, lumbar region; I11.9 Hypertensive heart disease without heart failure; E78.2 Mixed hyperlipidemia; Z88.8 Allergy status to other drugs, medicaments and biological substances; Z79.899 Other long term (current) drug therapy; Z87.820 Personal history of traumatic brain injury | CPT/HCPCS: G0463 ==

== ENCOUNTER → 2017-08-13 | Outpatient (CLI) | payer OTHER | LOC: M PAIN 10:30 | DX: M53.3 Sacrococcygeal disorders, not elsewhere classified (principal); M51.26 Other intervertebral disc displacement, lumbar region; M54.16 Radiculopathy, lumbar region; G89.29 Other chronic pain; I10 Essential (primary) hypertension; E78.2 Mixed hyperlipidemia; Z79.899 Other long term (current) drug therapy; Z88.8 Allergy status to other drugs, medicaments and biological substances | CPT/HCPCS: G0463 ==

== ENCOUNTER → 2017-11-02 | Outpatient (CLI) | payer OTHER | LOC: M PAIN 09:45 | DX: M51.26 Other intervertebral disc displacement, lumbar region (principal); G89.29 Other chronic pain; M54.16 Radiculopathy, lumbar region; E78.2 Mixed hyperlipidemia; M51.36 Other intervertebral disc degeneration, lumbar region; I11.9 Hypertensive heart disease without heart failure; Z87.820 Personal history of traumatic brain injury; Z79.899 Other long term (current) drug therapy; Z88.8 Allergy status to other drugs, medicaments and biological substances | CPT/HCPCS: G0463 ==

== ENCOUNTER → 2018-01-31 | Outpatient (CLI) | payer OTHER ==
[~2018-01-31] MED LIST changes: -LIDOCAINE 1% SDV INJ 30 ML VIAL As Ordered; -TRIAMCINOLONE ACETONIDE SUSP 40 MG/ML VIAL (J3301) As Ordered; +methylPREDNISolone SUSP 40 MG/ML (DEPO-medrol) VIAL (J1030) As Ordered
== END ==
LOC: M PAIN 08:30
DX: G89.29 Other chronic pain (principal); M51.17 Intervertebral disc disorders with radiculopathy, lumbosacral region; E78.2 Mixed hyperlipidemia; Z79.899 Other long term (current) drug therapy; Z88.8 Allergy status to other drugs, medicaments and biological substances; Z86.79 Personal history of other diseases of the circulatory system; Z87.820 Personal history of traumatic brain injury
CPT/HCPCS: J1030

== ENCOUNTER → 2018-02-21 | Outpatient (CLI) | payer OTHER | LOC: M PAIN 14:30 | DX: M51.26 Other intervertebral disc displacement, lumbar region (principal); M54.16 Radiculopathy, lumbar region | CPT/HCPCS: G0463 ==

== ENCOUNTER → 2018-03-22 | Outpatient (CLI) | payer OTHER | LOC: M PAIN 13:00 | DX: M51.17 Intervertebral disc disorders with radiculopathy, lumbosacral region (principal); I11.9 Hypertensive heart disease without heart failure; E78.2 Mixed hyperlipidemia; Z87.820 Personal history of traumatic brain injury; Z79.899 Other long term (current) drug therapy; Z88.8 Allergy status to other drugs, medicaments and biological substances | CPT/HCPCS: J1030 ==

== ENCOUNTER → 2018-03-28 | Outpatient (CLI) | payer OTHER | LOC: M PAIN 15:45 | DX: M79.18 Myalgia, other site (principal); M54.5 Low back pain; E78.2 Mixed hyperlipidemia; Z79.899 Other long term (current) drug therapy; Z88.8 Allergy status to other drugs, medicaments and biological substances; Z86.79 Personal history of other diseases of the circulatory system; Z87.820 Personal history of traumatic brain injury | CPT/HCPCS: G0463 ==

== ENCOUNTER → 2018-03-29 | Outpatient (CLI) | payer OTHER ==
[~2018-03-29] MED LIST changes: -ISOVUE-M 300 61% 15ML VIAL (Q9967) As Ordered; +TRIAMCINOLONE ACETONIDE SUSP 40 MG/ML VIAL (J3301) As Ordered; -methylPREDNISolone SUSP 40 MG/ML (DEPO-medrol) VIAL (J1030) As Ordered
== END ==
LOC: M PAIN 10:30
DX: M79.18 Myalgia, other site (principal); M54.5 Low back pain; I11.9 Hypertensive heart disease without heart failure; E78.2 Mixed hyperlipidemia; Z79.899 Other long term (current) drug therapy; Z88.8 Allergy status to other drugs, medicaments and biological substances; Z87.820 Personal history of traumatic brain injury; Z86.79 Personal history of other diseases of the circulatory system
CPT/HCPCS: J3301

== ENCOUNTER → 2018-04-08 | Outpatient (CLI) | payer OTHER ==
[~2018-04-08] MED LIST changes: +ISOVUE-M 300 61% 15ML VIAL (Q9967) As Ordered; -TRIAMCINOLONE ACETONIDE SUSP 40 MG/ML VIAL (J3301) As Ordered; +dexameTHASONE 10 MG/1 ML VIAL PRES.FREE (J1100) As Ordered
== END ==
LOC: M PAIN 14:00
DX: G89.29 Other chronic pain (principal); M51.16 Intervertebral disc disorders with radiculopathy, lumbar region; E78.2 Mixed hyperlipidemia; Z79.899 Other long term (current) drug therapy; Z88.8 Allergy status to other drugs, medicaments and biological substances; Z86.79 Personal history of other diseases of the circulatory system; Z87.820 Personal history of traumatic brain injury
CPT/HCPCS: J1100

== ENCOUNTER → 2018-04-27 | Outpatient (CLI) | payer OTHER | LOC: M PAIN 14:45 | DX: M47.816 Spondylosis without myelopathy or radiculopathy, lumbar region (principal); G89.29 Other chronic pain; E78.2 Mixed hyperlipidemia; Z79.899 Other long term (current) drug therapy; Z88.8 Allergy status to other drugs, medicaments and biological substances; Z87.820 Personal history of traumatic brain injury; Z86.79 Personal history of other diseases of the circulatory system | CPT/HCPCS: G0463 ==

== ENCOUNTER → 2018-05-05 | Outpatient (CLI) | payer OTHER ==
[~2018-05-05] MED LIST changes: +LIDOCAINE 1% SDV INJ 30 ML VIAL As Ordered; +TRIAMCINOLONE ACETONIDE SUSP 40 MG/ML VIAL (J3301) As Ordered; -dexameTHASONE 10 MG/1 ML VIAL PRES.FREE (J1100) As Ordered; -diazePAM 5 MG TAB As Ordered; -oxyCODONE 5MG TAB As Ordered
== END ==
LOC: M PAIN 11:45
DX: G89.29 Other chronic pain (principal); M47.817 Spondylosis without myelopathy or radiculopathy, lumbosacral region; E78.2 Mixed hyperlipidemia; E66.01 Morbid (severe) obesity due to excess calories; Z68.37 Body mass index [BMI] 37.0-37.9, adult; Z79.899 Other long term (current) drug therapy; Z88.8 Allergy status to other drugs, medicaments and biological substances; Z86.79 Personal history of other diseases of the circulatory system; Z87.820 Personal history of traumatic brain injury
CPT/HCPCS: J3301

== ENCOUNTER → 2018-05-20 | Outpatient (CLI) | payer OTHER ==
[~2018-05-20] MED LIST changes: +ALLO100T PO; -BUPIVACAINE HCL 0.25% 30 ML VIAL As Ordered; -ISOVUE-M 300 61% 15ML VIAL (Q9967) As Ordered; +KEPP1TAB2 PO; -LIDOCAINE 1% SDV INJ 30 ML VIAL As Ordered; +LISI40TAB PO; +METO1TAB32 PO; +NORCOTAB PO; +PRAV40TA2 PO; +TIZA4CAP PO; -TRIAMCINOLONE ACETONIDE SUSP 40 MG/ML VIAL (J3301) As Ordered
--- NOTE | 2018-06-07 23:34 | ECWPNPC ---
PATIENT NAME: ELLY VILLALPANDO : 1965 GENDER: MALE VISIT DATE: 05/20/2018 DISCHARGE DATE: 05/20/18 1203 VISIT LOCKED DATE TIME: PHYSICIAN: GONZALEZ DICKERSON MD RESOURCE: GONZALEZ DICKERSON MD REASON FOR APPOINTMENT 1. POST PROC HISTORY OF PRESENT ILLNESS DEPRESSION SCREENING: PHQ-2 IN LAST TWO WEEKS HAVE YOU BEEN BOTHERED BY LITTLE INTEREST OR PLEASURE IN DOING THINGSNO FEELING DOWN, DEPRESSED, OR HOPELESSNO HISTORY OF PRESENT ILLNESS: PAIN THE PATIENT DESCRIBES THE PAIN... 52 YEAR OLD MALE PATIENT WITH A HISTORY OF CHRONIC LOW BACK PAIN. PATIENT DESCRIBES THE PAIN STABBING AND HAVING IT ALL THE TIME WITH A PAIN SCORE OF 5-8/10 DEPENDING ON PHYSICAL ACTIVITY. THE PATIENT RECENTLY HAD A LUMBAR THERAPEUTIC FACET BLOCK DONE ON 05/05/18 AND REPORTS THAT IT ONLY PROVIDED 1 DAY OF PAIN RELIEF. THE PATIENT STATES THAT THE PAIN IS LOCATED MAINLY AT HIS LEFT LOWER BACK. PATIENT DENIES UNEXPLAINABLE WEIGHT LOSS, FEVER, CHILLS, NEW CHANGES ON HIS URINARY OR BOWEL CONTROL. FALL RISK SCREENING: SCREENING :NO FALLS IN THE PAST YEAR CURRENT MEDICATIONS TAKING AMLODIPINE BESYLATE 10 MG TABLET 1/2 TABLET ORALLY ONCE A DAY, NOTES: 0900 TAKING ALLOPURINOL 100 MG TABLET 1 TABLET ORALLY TWICE A DAY, NOTES: 3 DAYS AGO TAKING TIZANIDINE HCL 2 MG TABLET 1 TABLET NEEDED ORALLY THREE TIMES A DAY, NOTES: 2 DAYS AGO TAKING METOPROLOL SUCCINATE 50 MG TABLET EXTENDED RELEASE ORALLY DAILY, NOTES: 05/04/18@2099 TAKING PRAVASTATIN SODIUM 40 MG TABLET 1 TABLET ORALLY ONCE A DAY, NOTES: 05/04/18@2099 TAKING MELOXICAM 7.5 MG TABLET 1/2 TAB ORALLY DAILY AM, NOTES: 0900 TAKING GABAPENTIN 400 MG CAPSULE ORALLY THREE TIMES A DAY, NOTES: 0900 TAKING LISINOPRIL 40 MG TABLET 1 TABLET ORALLY ONCE A DAY, NOTES: 0900 TAKING LEVETIRACETAM 500 MG TABLET 2 TABLETS ORALLY DAILY, NOTES: 05/04 @2099 TAKING MAY HAVE - - CBD OIL ONCE DAILY NEEDED MEDICATION LIST REVIEWED AND RECONCILED WITH THE PATIENT PAST MEDICAL HISTORY HYPERTENSIVE CARDIAC VASCULAR DISEASE TACHYCARDIA MIXED HYPERLIPIDEMIA TRAUMATIC BRAIN INJURY R/T ENCEPHALITIS IN 10/2015 DJD OF LUMBAR SPINE ALLERGIES XYLOCAINE: INCREASED HR: ALLERGY SURGICAL HISTORY FISTULA REPAIR 1983 FAMILY HISTORY FATHER: , DIAGNOSED WITH HYPERTENSION MOTHER: , DIAGNOSED WITH CANCER 2 BROTHER(S) - HEALTHY. 1 SON(S) - HEALTHY. HISTORY REVIEWED 04/27/18@1530. SOCIAL HISTORY GENERAL: TOBACCO USE ARE YOU A:NONSMOKER ALCOHOL SCREENING DID YOU HAVE A DRINK CONTAINING ALCOHOL IN THE PAST YEAR?YES HOW OFTEN DID YOU HAVE SIX OR MORE DRINKS ON ONE OCCASION IN THE PAST YEAR?MONTHLY (2 POINTS) HOW MANY DRINKS DID YOU HAVE ON A TYPICAL DAY WHEN YOU WERE DRINKING IN THE PAST YEAR?3 OR 4 (1 POINT) HOW OFTEN DID YOU HAVE A DRINK CONTAINING ALCOHOL IN THE PAST YEAR?FOUR OR MORE TIMES A WEEK (4 POINTS) POINTS7 INTERPRETATIONPOSITIVE RECREATIONAL DRUG USE DRUG USE?NO CAFFEINE CAFFEINE USE?YES HOW OFTEN AND HOW MUCH? 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 DIET: REGULAR. EXERCISE: WALKS. MARITAL STATUS: SINGLE. OTHERS AT HOME: NONE. IMMUNIZATION PROGRAM NONE. PAIN CLINIC PFS, CLERGY, PUBLIC HEALTH REFERRALS PFS REFERRAL NEEDED?NO CLERGY REFERRAL NEEDED?NO PUBLIC HEALTH REFERRAL NEEDED?NO WAS THE PROVIDER NOTIFIED OF ANY PERTINENT INFO? N/A HAS THE PATIENT BEEN EDUCATED REGARDING HIS/HER PLAN OF CARE?YES HAS THE PATIENT BEEN EDUCATED REGARDING PAIN, THE RISK FOR PAIN, THE IMPORTANCE OF EFFECTIVE PAIN MANAGEMENT, AND THE PAIN ASSESSMENT PROCESS?YES ADVANCE DIRECTIVE ADVANCE DIRECTIVE DISCUSSED WITH PATIENT:YES 04/27/18 HCP FILED PT BROTHER ALEXSANDRA VILLALPANDO [phone] 03/22/18 1400 REVIEWED WITH PT. AD REVIEWED WITH PT 03/28/18 1631 BVREVIEWED WITH PATIENT 03/29/18 1200REVIEWED WITH PT 05/20/18 1130 LAS. HOSPITALIZATION/MAJOR DIAGNOSTIC PROCEDURE ENCEPHALITIS 10/2015 REVIEW OF SYSTEMS REVIEWED BY: PROVIDER: GONZALEZ DICKERSON MD . CONSTITUTIONAL: ANY CHANGE IN YOUR MEDICAL CONDITION? NO . CHILLS NO . FEVER NO . INFECTION: DO YOU HAVE NEW INFECTIONS? NO . DO YOU HAVE HISTORY OF MRSA? NO . MUSCULOSKELETAL: ANY NEW PATTERNS OF PAIN OR NUMBNESS? NO . GASTROENTEROLOGY: ANY NEW CHANGE IN BOWEL CONTROL? NO . GENITOURINARY: ANY NEW CHANGE IN BLADDER CONTROL? NO . IS THERE A CHANCE YOU COULD BE ? NO . HEMATOLOGY/LYMPH: DO YOU TAKE ANY BLOOD THINNERS? (FOR EXAMPLE- COUMADIN, PLAVIX, AGGRENOX, PLATEL, PRADAXA, OR XARELTO) NO . WHEN WAS YOUR LAST DOSE? DATE: TIME: . NEUROLOGY: HAVE YOU FALLEN IN THE PAST 6 MONTHS? NO . ANY NEW EXTREMITY NUMBNESS OR WEAKNESS? NO . CARDIOLOGY: DO YOU HAVE A PACEMAKER OR DEFIBRILLATOR? NO . RESPIRATORY: HAVE YOU BEEN SICK IN THE PAST WEEK? NO . FEVER NO . FLU LIKE SYMPTOMS? NO . COUGH NO . INTEGUMENTARY: DO YOU HAVE ANY RASHES OR OPEN SORES? YES PT REPORTS DRY SKIN/RASHY AREA LEFT BUTTOCKS, THINKS IT IS FROM USING ICE PACK. . ALLERGIC/IMMUNO: ARE YOU ALLERGIC TO SHELLFISH OR IV DYE? NO . ANY NEW ALLERGIES? NO . PSYCHIATRIC: DO YOU HAVE THOUGHTS OF HURTING YOURSELF OR SOMEONE ELSE? NO . ARE YOU ABUSED, NEGLECTED, OR IN AN UNSAFE ENVIRONMENT? NO . ENDOCRINOLOGY: ARE YOU DIABETIC? NO . OTHER: DO YOU NEED ANY PRESCRIPTIONS? NO . IF YES, PLEASE LIST: ____ . ANY NEW PROBLEMS WITH YOUR MEDICATIONS? NO . WHEN DID YOU LAST EAT? ____ . WHEN DID YOU LAST DRINK? ____ . WHAT DID YOU LAST DRINK? ____ . NAME OF PERSON DRIVING YOU HOME? ____ . DO YOU HAVE ANY OTHER QUESTIONS OR CONCERNS PT STATES SCIATICA PAIN WILL NOT STOP, COLD WEATHER IS MAKING THINGS WORSE. HE HAS AN INVERSION TABLE, USING FOR STRETCHING, BUT NOTHING WORKS. . VITAL SIGNS WT 188 LBS, HT 60 IN, BMI 36.71 INDEX, BP 109/58 MM HG, HR 83 /MIN, RR 18 /MIN, TEMP 97.5 F, OXYGEN SAT % 97%, SAFE IN ENV? (Y/N) YES, NA INITIALS AW 1110, REVIEWED BY: AIDEN. EXAMINATION GENERAL EXAMINATION: PATIENT IS ALERT O X 3 AND COOPERATIVE. TENDERNESS OVER THE FACET JOINTS OF THE LOW BACK. INCREASING PAIN WITH EXTENSION AND LATERAL ROTATION OF THE LOW BACK. LEFT LEG IS WEAKER THAN THE RIGHT WITH EXTENSION AND FLEXION. STRAIGHT LEG RAISE OF THE LEFT LEG IS POSITIVE AT 40 DEGREES FOR RADICULOPATHY. PATIENT REPORTS NUMBNESS DOWN LEFT LEG. MRI OF THE LUMBAR SPINE DONE ON 05/05/17 SHOWS A DISC PROTRUSIONS AND FACET ARTHROPATHY CHANGES AT MULTIPLE LEVELS. 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 VILLALPANDO'S PAIN MANAGEMENT CASE. AT THIS TIME, I WOULD LIKE TO STOP MELOXICAM AND START IBUPROFEN DUE TO THE PATIENT EXPRESSING THAT MELOXICAM DOES NOT WORK FOR HIM. I INFORMED THE PATIENT THAT IF THE IBUPROFEN DOES NOT WORK THEN TO CALL AND I WILL START HIM ON CYMBALTA. I WOULD ALSO LIKE FOR THE PATIENT TO CONSIDER A TRANSFORAMINAL EPIDURAL IN THE FUTURE. I WILL ALSO REFER THE PATIENT TO [facility] FOR A SURGICAL CONSULT. THE PATIENT WILL FOLLOW UP WITH ME IN 1 MONTH. INSTRUCTIONS WERE GIVEN, QUESTIONS WERE ANSWERED, PATIENT REPORTS UNDERSTANDING AND AGREES WITH THE PLAN. I, DIVINA AREVALO, DOCUMENTED THE ABOVE INFORMATION ACTING A SCRIBE FOR DR. DICKERSON. I HAVE REVIEWED THE ABOVE DOCUMENT, WRITTEN BY [place]O [place] AND I VERIFY THAT IT IS ACCURATE. OTHERS START IBUPROFEN TABLET, 800 MG, 1 TABLET WITH FOOD OR MILK NEEDED, ORALLY, THREE TIMES A DAY MDD3, 30 DAY(S), 75, REFILLS 1 PROCEDURE CODES FA211 ESTABILISHED PATIENT [facility] FACILITY CHARGE G8427 CURRENT MEDS W/DOSAGES DOCUMENTED G8730 PAIN ASSESS POS TOOL F/U PLAN DOC DISPOSITION & COMMUNICATION FOLLOW UP 4 WEEKS ELECTRONICALLY SIGNED BY GONZALEZ DICKERSON MD, MD ON 06/07/2018 AT 05:35 PM EST DISCLAIMER : THIS IS A VISIT SUMMARY EXTRACTED FROM THE [employer] CHART. IT IS NOT A COPY OF THE [employer] PROGRESS NOTE. KIANA
== END ==
LOC: M PAIN 10:45
PROVIDERS: ATTEND Anesthesiology
DX: M51.16 Intervertebral disc disorders with radiculopathy, lumbar region (principal); M51.17 Intervertebral disc disorders with radiculopathy, lumbosacral region; M47.816 Spondylosis without myelopathy or radiculopathy, lumbar region; I11.9 Hypertensive heart disease without heart failure; R00.0 Tachycardia, unspecified; E78.2 Mixed hyperlipidemia; Z87.820 Personal history of traumatic brain injury; M51.36 Other intervertebral disc degeneration, lumbar region; Z79.899 Other long term (current) drug therapy; Z79.1 Long term (current) use of non-steroidal anti-inflammatories (NSAID); Z88.8 Allergy status to other drugs, medicaments and biological substances

== ENCOUNTER 2018-09-01 08:03 | Day surgery (SDC) | payer OTHER ==
[~2018-09-01] VITALS: Ht 182.9 cm; Wt 82.1 kg
[~2018-09-01 08:03] MED LIST changes: +HYDR-3715 PO; +KEPP1TAB PO; +LIDOCAINE 2% INJ 100 MG/5 ML SDV (FOR ANES.) As Ordered ONE; +LISI40TA PO; -LISI40TAB PO; -NORCOTAB PO; +NS 1,000 ML IV ONE; +PROPOFOL 200 MG/20 ML VIAL As Ordered ONE
[2018-09-01] MEDS ORDERED: PROPOFOL 200 MG/20 ML VIAL As Ordered ONE (09:12)
--- NOTE | 2018-09-01 09:26 | ROOR ---
Patient Name: Jamison Metcalf Procedure Date: 09/01/2018 9:05 AM Date of : 1965 Age: 53 Room: [facility] Gender: Male Note Status: Finalized Procedure: Colonoscopy Indications: Screening for colorectal malignant neoplasm Providers: Jimmy Keen Jr, MD Referring MD: [facility], Admin. Requesting Provider: Medicines: Propofol per Anesthesia Complications: No immediate complications. Procedure: Pre-Anesthesia Assessment: - Prior to the procedure, a History and Physical was performed, and patient medications and allergies were reviewed. The patient is competent. The risks and benefits of the procedure and the sedation options and risks were discussed with the patient. All questions were answered and informed consent was obtained. Patient identification and proposed procedure were verified by the physician and the nurse in the pre-procedure area and in the procedure room. Mental Status Examination: alert and oriented. Airway Examination: normal oropharyngeal airway and neck mobility. Respiratory Examination: clear to auscultation. CV Examination: normal. ASA Grade Assessment: II - A patient with mild systemic disease. After reviewing the risks and benefits, the patient was deemed in satisfactory condition to undergo the procedure. The anesthesia plan was to use moderate sedation / analgesia (conscious sedation). Immediately prior to administration of medications, the patient was re-assessed for adequacy to receive sedatives. The heart rate, respiratory rate, oxygen saturations, blood pressure, adequacy of pulmonary ventilation, and response to care were monitored throughout the procedure. The physical status of the patient was re-assessed after the procedure. The Colonoscope was introduced through the anus and advanced to the cecum, identified by appendiceal orifice and ileocecal valve. The colonoscopy was performed without difficulty. The patient tolerated the procedure well. The quality of the bowel preparation was poor. Findings: The rectum, recto-sigmoid colon, sigmoid colon, descending colon, transverse colon, ascending colon, cecum, appendiceal orifice and ileocecal valve appeared normal. Impression: - Preparation of the colon was poor. - The rectum, recto-sigmoid colon, sigmoid colon, descending colon, transverse colon, ascending colon, cecum, appendiceal orifice and ileocecal valve are normal. - No specimens collected. Recommendation: - Discharge patient to home (ambulatory). - Repeat colonoscopy in 10 years for screening purposes. Jimmy Keen MD Jimmy Keen Jr, MD 09/01/2018 9:25:39 AM Electronically signed by Jimmy Keen Jr, MD Number of Addenda: 0 Note Initiated On: 09/01/2018 9:05 AM Estimated Blood Loss: Estimated blood loss: none.
[2018-09-01 09:50] VITALS: BP 157/97
== END 2018-09-01 10:02 | disposition home or self-care (01) ==
LOC: M OPP 08:03
PROVIDERS: ATTEND Surgery
DX: Z12.11 Encounter for screening for malignant neoplasm of colon (principal)

== ENCOUNTER → 2019-12-22 | Outpatient (CLI) | payer OTHER ==
[~2019-12-22] MED LIST changes: -LIDOCAINE 2% INJ 100 MG/5 ML SDV (FOR ANES.) As Ordered ONE; -NS 1,000 ML IV ONE; -PROPOFOL 200 MG/20 ML VIAL As Ordered ONE
--- NOTE | 2019-12-26 04:47 | ECWPNPC ---
PATIENT NAME: ELLY VILLALPANDO : 1965 GENDER: MALE VISIT DATE: 12/22/2019 DISCHARGE DATE: 12/22/19 0000 VISIT LOCKED DATE TIME: PHYSICIAN: GONZALEZ DICKERSON MD RESOURCE: GONZALEZ DICKERSON MD REASON FOR APPOINTMENT 1. PREVIOUS PATIENT BACK PAIN HISTORY OF PRESENT ILLNESS GENERAL: 54-YEAR-OLD MALE PATIENT WITH A HISTORY OF CHRONIC LOW BACK AND MAINLY LEFT LEG PAIN. THE PATIENT DESCRIBES THE PAIN SHARP AND STABBING WITH A PAIN SCORE RANGING FROM 0-9/10 DEPENDING ON PHYSICAL ACTIVITY. THE PAIN IS USUALLY A 6/10 MAINLY IN THE BACK, LEFT HIP AND LEFT FOOT. THE PATIENT HAD A DISCECTOMY MAY 29, 2019 DONE AT [facility]; UNFORTUNATELY THE PATIENT STATES THE PAIN HAS PERSISTS. THE PATIENT HAD INJECTIONS IN THE PAST THAT DID NOT HELP. THE PATIENT HAS BEEN ON CELEBREX, GABAPENTIN AND TIZANIDINE FOR SPASMS AND PAIN. THE PATIENT STATES THAT THE PAIN IS AFFECTING HIS ACTIVITIES OF DAILY LIVING, SUCH GROCERY SHOPPING AND WORKING. PATIENT DENIES UNEXPLAINABLE WEIGHT LOSS, FEVER, CHILLS, NEW CHANGES ON HIS URINARY OR BOWEL CONTROL. FALL RISK SCREENING: SCREENING :NO FALLS REPORTED IN THE LAST YEAR NO PAIN SCREENING: PATIENT HAS A COMPLAINT OF ACUTE OR CHRONIC PAIN :YES LOCATION OF PAIN:LOW BACK LEFT BUTTOCKS, OCCASIONALLY DOWN LEFT LEG INTENSITY OF PAIN (SCALE OF 1 TO 10):6 0 AT REST, 6-9 WITH ACTIVITIES WHAT DOES YOUR PAIN FEEL LIKE:SHARP, STABBING DURATION:CONSTANT PAIN IS INCREASED BY:ACTIVITIES, PROLONGED STANDING SITTING, DRIVING PAIN IS DECREASED BY: WALKING TREATMENT/MEDICATIONS USED TO MANAGE PAIN: INJECTIONS LEVEL OF RELIEF FROM PAIN TREATMENTS IN THE PAST: INJECTIONS DID NOT HELP IN PAST NURSING NOTE: - - -. PAIN CENTER INTAKE QUESTIONS: DO YOU HAVE A HISTORY OF MRSA? :NO DO YOU TAKE A BLOOD THINNERS? :NO DO YOU HAVE ANY BLEEDING DISORDERS? :NO ANY NEW NUMBNESS OR WEAKNESS IN YOUR LEGS OR ARMS? :NO ANY PACEMAKER,DEFIBRILLATOR, OR DORSAL COLUMN STIMULATOR? :NO DO YOU HAVE ANY RASHES OR OPEN SORES? :NO ARE YOU ALLERGIC TO IV DYE? :NO ARE YOU DIABETIC? :NO ANY NEW PROBLEMS WITH YOUR MEDICATIONS? :NO HAVE YOU RECEIVED A VACCINE IN THE PAST 30 DAYS? :NO DO YOU PLAN TO RECEIVE A VACCINE IN THE NEXT 21 DAYS? :NO DO YOU NEED ANY PRESCRIPTION? :NO DO YOU TAKE ANY IMMUNOSUPPRESSIVE MEDICATIONS? :NO CURRENT MEDICATIONS TAKING METOPROLOL SUCCINATE 50 MG TABLET EXTENDED RELEASE ORALLY DAILY, NOTES: 05/04/18@2100 TAKING AMLODIPINE BESYLATE 10 MG TABLET 1/2 TABLET ORALLY ONCE A DAY, NOTES: 0900 TAKING ALLOPURINOL 100 MG TABLET 1 TABLET ORALLY TWICE A DAY, NOTES: 3 DAYS AGO TAKING TIZANIDINE HCL 2 MG TABLET 1 TABLET NEEDED ORALLY THREE TIMES A DAY, NOTES: 2 DAYS AGO TAKING PRAVASTATIN SODIUM 40 MG TABLET 1 TABLET ORALLY ONCE A DAY, NOTES: 05/04/18@2099 TAKING GABAPENTIN 300 MG CAPSULE ORALLY THREE TIMES A DAY, NOTES: 0900 TAKING LISINOPRIL 40 MG TABLET 1 TABLET ORALLY ONCE A DAY, NOTES: 0900 TAKING LEVETIRACETAM 500 MG TABLET 2 TABLETS ORALLY DAILY, NOTES: 05/04 @2099 TAKING CELEBREX 200 MG CAPSULE 1 CAPSULE WITH FOOD ORALLY ONCE A DAY NOT-TAKING MELOXICAM 7.5 MG TABLET 1/2 TAB ORALLY DAILY AM, NOTES: 0900 NOT-TAKING IBUPROFEN 800 MG TABLET 1 TABLET WITH FOOD OR MILK NEEDED ORALLY THREE TIMES A DAY MDD3 NOT-TAKING MAY HAVE - - CBD OIL ONCE DAILY NEEDED MEDICATION LIST REVIEWED AND RECONCILED WITH THE PATIENT PAST MEDICAL HISTORY HYPERTENSIVE CARDIAC VASCULAR DISEASE TACHYCARDIA MIXED HYPERLIPIDEMIA TRAUMATIC BRAIN INJURY R/T ENCEPHALITIS IN 10/2015 DJD OF LUMBAR SPINE GOUT ALLERGIES XYLOCAINE: INCREASED HR - ALLERGY SURGICAL HISTORY FISTULA REPAIR 1984 L5-S1 DISCECTOMY 05/29/2019 FAMILY HISTORY FATHER: , DIAGNOSED WITH HYPERTENSION MOTHER: , OTHER MALIGNANT NEOPLASM OF UNSPECIFIED SITE 2 BROTHER(S) - HEALTHY. 1 SON(S) - HEALTHY. HISTORY REVIEWED 04/27/18@1530. SOCIAL HISTORY GENERAL: TOBACCO USE ARE YOU A:NONSMOKER LATEX QUESTIONNAIRE LATEX ALLERGY : HAVE YOU EVER DEVELOPED ANY TYPE OF REACTION AFTER HANDLING LATEX PRODUCTS SUCH RUBBER GLOVES, CONDOMS, DIAPHRAGMS, BALLOONS, SOCKS, OR UNDERWEAR?NO LATEX ALLERGY : HAVE YOU EVER DEVELOPED ANY TYPE OF REACTION DURING OR AFTER DENTAL APPOINTMENT, VAGINAL/RECTAL EXAMINATION, SURGICAL PROCEDURE, OR ANY OTHER EXPOSURE?NO LATEX RISK : HAVE YOU EVER HAD ANY DIFFICULTY BREATHING OR HIVES AFTER EATING OR HANDLING ANY FRUITS, OR VEGETABLES; SUCH KIWI, BANANAS, STONE FRUITS, OR CHESTNUTSNO LATEX RISK : DO YOU HAVE A PREVIOUS PERSONAL HISTORY OF MORE THAN NINE SURGERIES, SPINA BIFIDA, OR REPEATED CATHERIZATIONS? NO LATEX RISK : ARE YOU FREQUENTLY EXPOSED TO LATEX PRODUCTS IN YOUR OCCUPATION?NO DATE ASKED : 12/22/2019 ALCOHOL SCREENING DID YOU HAVE A DRINK CONTAINING ALCOHOL IN THE PAST YEAR?YES HOW OFTEN DID YOU HAVE A DRINK CONTAINING ALCOHOL IN THE PAST YEAR?FOUR OR MORE TIMES A WEEK (4 POINTS) HOW MANY DRINKS DID YOU HAVE ON A TYPICAL DAY WHEN YOU WERE DRINKING IN THE PAST YEAR?1 OR 2 (0 POINTS) HOW OFTEN DID YOU HAVE SIX OR MORE DRINKS ON ONE OCCASION IN THE PAST YEAR?LESS THAN MONTHLY (1 POINT) POINTS5 INTERPRETATIONPOSITIVE RECREATIONAL DRUG USE DRUG USE?NO CAFFEINE CAFFEINE USE?YES 2 CUP DAILY HOW OFTEN AND HOW MUCH? DAILY WORSHIP [id number] BAPTIST LANGUAGE LANGUAGES SPOKEN:GEORGIAN LEARNING BARRIERS / SPECIAL NEEDS CHANGE FROM LAST VISIT?NO 12/22/2019 BARRIERS TO LEARNING?NO HEARING IMPAIRED?NO VISION IMPAIRED?NO COGNITIVELY IMPAIRED?NO READINESS TO LEARN?YES LEARNING PREFERENCES?NO LEARNING CAPABILITIES PRESENT?YES EMOTIONAL BARRIERS?NO SPECIAL DEVICES?NO COSTUMED CHARACTER ENTERTAINER NEEDED?NO DOMESTIC VIOLENCE DO YOU FEEL SAFE IN YOUR ENVIRONMENT?YES OCCUPATION: TEACHER EMOTIONALLY IMPAIRED AND BED BREAKFAST. DIET: REGULAR. EXERCISE: WALKS. MARITAL STATUS: SINGLE. OTHERS AT HOME: NONE. IMMUNIZATION PROGRAM NONE. PAIN CLINIC PFS, CLERGY, PUBLIC HEALTH REFERRALS PFS REFERRAL NEEDED?NO CLERGY REFERRAL NEEDED?NO PUBLIC HEALTH REFERRAL NEEDED?NO WAS THE PROVIDER NOTIFIED OF ANY PERTINENT INFO? N/A HAS THE PATIENT BEEN EDUCATED REGARDING HIS/HER PLAN OF CARE?YES HAS THE PATIENT BEEN EDUCATED REGARDING PAIN, THE RISK FOR PAIN, THE IMPORTANCE OF EFFECTIVE PAIN MANAGEMENT, AND THE PAIN ASSESSMENT PROCESS?YES ADVANCE DIRECTIVE ADVANCE DIRECTIVE DISCUSSED WITH PATIENT:YES 04/27/18 HCP FILED PT BROTHKEITH VILLALPANDO [phone] HOSPITALIZATION/MAJOR DIAGNOSTIC PROCEDURE ENCEPHALITIS 10/2015 REVIEW OF SYSTEMS CONSTITUTIONAL: ANY RECENT FEVER NO, NO . CHILLS NO, NO . WEIGHT CHANGE OF UNKNOWN REASONS NO, NO . MUSCULOSKELETAL: ANY UNUSUAL JOINT PAIN OR SWELLING NOT MENTIONED NO, NO . SYSTEMIC LUPUS NO, NO . ANY NEUROMUSCULAR DISORDER NOT MENTIONED NO, NO . LYME DISEASE NO, NO . GASTROENTEROLOGY: ANY NEW CHANGE IN BOWEL CONTROL? NO, NO . HISTORY OF LIVER DISORDER NOT MENTIONED NO, NO . HISTORY OF UNUSUAL ABDOMINAL PAIN OR CRAMPING NOT MENTIONED NO, NO . NO CONSTIPATION. GENITOURINARY: ANY NEW CHANGE IN BLADDER CONTROL? NO, NO . ANY RENAL/KIDNEY CONDITON NOT MENTIONED NO, NO . NEUROLOGY: HISTORY OF TBI NOT MENTIONED NO, NO . OTHER NEW NUMBNESS OR PAIN PATTERNS NOT MENTIONED NO, NO . NEW ONSET DIZZINESS OR NEUROLOGICAL CHANGES NOT MENTIONED NO, NO . HISTORY OF SEVERE HEADACHES NOT MENTIONED NO, NO . HISTORY OF STROKE OR NEUROLOGICAL DISORDER NOT MENTIONED NO, NO . CARDIOLOGY: HEART SURGERY NO, NO . CONGESTIVE HEART FAILURE/FLUID OVERLOAD NOT MENTIONED NO, NO . HISTORY OF CHEST PAIN,IRREGULAR HEART BEAT NOT MENTIONED NO, NO . RESPIRATORY: SHORTNESS OF BREATH ON EXERTION, WHEEZES, UNUSUAL COUGH NOT MENTIONED NO, NO . ENDOCRINOLOGY: ADRENAL GLAND OR THYROID DISORDERS NOT MENTIONED NO, NO . UNUSUAL URINATION, DIZZINESS OR LETHARGY NOT MENTIONED NO, NO . VITAL SIGNS WT 192.4 LBS, HT 72 IN, BMI 26.09 INDEX, BP 122/70 MM HG, HR 61 /MIN, RR 16 /MIN, TEMP 97.8 F, OXYGEN SAT % 100%, REVIEWED BY: KRYSTIAN. EXAMINATION GENERAL EXAMINATION: THE PATIENT IS ALERT, ORIENTED TIMES THREE AND COOPERATIVE. LUNGS ARE CLEAR TO AUSCULTATION . HEART IS REGULAR. THERE IS NO MURMURS NO GALLOPS . HIS WALK IS ANTALGIC . THERE IS TENDERNESS IN THE LOWER BACK AND IN THE PARASPINAL MUSCLE GROUP . LEFT LEG IS WEAKER THAN THE RIGHT LEG AT EXTENSION AND FLEXION . STRAIGHT LEG RAISING IS POSITIVE FOR RADICULOPATHY IN THE LEFT LEG TO 45 . MRI DONE ON 05/04/2017 SHOWS BULGING DISC WITH A LEFT DISC PROTRUSION AT L5-S1 AND DISC PROTRUSION AT L3-L4. ASSESSMENTS LUMBAR POST-LAMINECTOMY SYNDROME - M96.1 (PRIMARY) INTERVERTEBRAL DISC DISORDER WITH RADICULOPATHY OF LUMBAR REGION - M51.16 INTERVERTEBRAL DISC DISORDER WITH RADICULOPATHY OF LUMBOSACRAL REGION - M51.17 TREATMENT LUMBAR POST-LAMINECTOMY SYNDROME [facility] MRI LS SPINE W/O AND WITH [id number] CLINICAL NOTES: WE DISCUSSED SEVERAL ALTERNATIVES WITH MR. RODRIGUEZ REGARDING HIS TREATMENT OPTIONS AND CARE. I WOULD LIKE TO SEE THE MRIS THAT THE PATIENT HAD PERFORMED IN THE MAY. I WOULD ALSO LIKE TO HAVE NEW MRIS PERFORMED. I WILL REQUEST AUTHORIZATION FOR A NEW LUMBAR MRI WITH AND WITHOUT CONTRAST. I DISCUSSED THE OPTION OF DOING A DCS TRIAL AT SOME POINT. I ALSO DISCUSSED DOING INJECTIONS. THE PATIENT KNOWS TO CALL THE OFFICE IF HE HAS ANY QUESTIONS OR CONCERNS. THE PATIENT UNDERSTANDS AND IS IN AGREEMENT WITH THE TREATMENT PLAN. I, SURESH EAST, DOCUMENTED THE ABOVE INFORMATION ACTING A SCRIBE FOR DR. DICKERSON. I HAVE REVIEWED THE ABOVE DOCUMENT, WRITTEN BY SURESH EAST, LIQUID YEAST SUPERVISOR, AND I VERIFY THAT IT IS ACCURATE. PROCEDURE CODES FA211 ESTABILISHED PATIENT [facility] CHARGE 77970 OFFICE/OUTPATIENT VISIT EST DISPOSITION & COMMUNICATION FOLLOW UP F/UP WITH DR. Jaky MILIAN IN A MONTH (REASON: REQUEST LUMBAR MRI WITH AND W/O CONTRAST) ELECTRONICALLY SIGNED BY GONZALEZ DICKERSON MD, MD ON 12/25/2019 AT 05:39 PM EDT DISCLAIMER : THIS IS A VISIT SUMMARY EXTRACTED FROM THE [employer] CHART. IT IS NOT A COPY OF THE [employer] PROGRESS NOTE. KIANA
== END ==
LOC: M PAIN 15:00
PROVIDERS: ATTEND Anesthesiology
DX: M96.1 Postlaminectomy syndrome, not elsewhere classified (principal); M51.16 Intervertebral disc disorders with radiculopathy, lumbar region; M51.17 Intervertebral disc disorders with radiculopathy, lumbosacral region

== ENCOUNTER → 2020-04-23 | Outpatient (CLI) | payer OTHER ==
[~2020-04-23] MED LIST changes: +PROHANCE 279.3MG/ML 15ML VIAL As Ordered ONE; +PROHANCE 279.3MG/ML 5ML VIAL As Ordered ONE
--- NOTE | 2020-04-23 19:16 | REPVR ---
PROCEDURE INFORMATION: Exam: MR Lumbar Spine Without and With Contrast. Exam date and time: 04/23/2020 4:08 PM Age: 54 years old Clinical indication: Other: Lumbar post bautista sydrome; Prior surgery; Surgery date: 6+ months TECHNIQUE: Imaging protocol: Multiplanar magnetic resonance images of the lumbar spine without and with intravenous contrast. Contrast material: PROHANCE; Contrast volume: 18 ml; Contrast route: INTRAVENOUS (IV); COMPARISON: XA FLUORO GUIDE SPINE INJECTION 04/08/2018 3:19 PM FINDINGS: Vertebrae: Unremarkable. Spinal cord: Conus terminates at L2. No abnormal vertebral bone marrow signal. L1-L2: Disc bulge. Bilateral facet and ligamentum flavum hypertrophy. No spinal canal stenosis. Mild right neural foraminal narrowing. L2-L3: Disc bulge. Bilateral facet and ligamentum flavum hypertrophy. No spinal canal stenosis. Moderate bilateral neural foraminal narrowing. L3-L4: Disc bulge. Bilateral facet and ligamentum flavum hypertrophy. No spinal canal stenosis. Moderate bilateral neural foraminal narrowing. L4-L5: Disc bulge. Bilateral facet and ligamentum flavum hypertrophy. No spinal canal stenosis. Moderate bilateral neural foraminal narrowing. L5-S1: Disc bulge. Bilateral facet and ligamentum flavum hypertrophy. No spinal canal stenosis. Moderate bilateral neural foraminal narrowing. Soft tissues: Unremarkable. IMPRESSION: No acute abnormality. Multilevel degenerative disc disease with neural foraminal narrowing. Mild right neural foraminal narrowing at L1-L2, moderate bilateral L2-L3, L3-L4, L4-L5 and L5-S1. Electronically signed by: Myron Thompson On 04/23/2020 19:16:38 PM
== END ==
LOC: M RAD 14:50
PROVIDERS: ATTEND Anesthesiology
DX: M96.1 Postlaminectomy syndrome, not elsewhere classified (principal); M51.26 Other intervertebral disc displacement, lumbar region
CPT/HCPCS: 72158; A9576

== ENCOUNTER → 2020-05-16 | Outpatient (CLI) | payer OTHER ==
[~2020-05-16] MED LIST changes: -PROHANCE 279.3MG/ML 15ML VIAL As Ordered ONE; -PROHANCE 279.3MG/ML 5ML VIAL As Ordered ONE
--- NOTE | 2020-05-18 00:54 | ECWPNPC ---
PATIENT NAME: ELLY VILLALPANDO : 1965 GENDER: MALE VISIT DATE: 05/16/2020 DISCHARGE DATE: 05/16/20 1629 VISIT LOCKED DATE TIME: PHYSICIAN: GONZALEZ DICKERSON MD RESOURCE: GONZALEZ DICKERSON MD REASON FOR APPOINTMENT 1. MRI REVIEW HISTORY OF PRESENT ILLNESS DEPRESSION SCREENING: PHQ-2 (2015 EDITION) LITTLE INTEREST OR PLEASURE IN DOING THINGS?NOT AT ALL FEELING DOWN, DEPRESSED, OR HOPELESS?NOT AT ALL TOTAL SCORE0 FALL RISK SCREENING: SCREENING :NO FALLS REPORTED IN THE LAST YEAR NO PAIN SCREENING: PATIENT HAS A COMPLAINT OF ACUTE OR CHRONIC PAIN :YES LOCATION OF PAIN:LOW BACK LEFT BUTTOCKS, OCCASIONALLY DOWN LEFT LEG INTENSITY OF PAIN (SCALE OF 1 TO 10):6 0 AT REST, 6-9 WITH ACTIVITIES WHAT DOES YOUR PAIN FEEL LIKE:SHARP, STABBING DURATION:CONSTANT PAIN IS INCREASED BY:ACTIVITIES, PROLONGED STANDING SITTING, DRIVING PAIN IS DECREASED BY: WALKING TREATMENT/MEDICATIONS USED TO MANAGE PAIN: INJECTIONS LEVEL OF RELIEF FROM PAIN TREATMENTS IN THE PAST: INJECTIONS DID NOT HELP IN PAST PAIN CENTER INTAKE QUESTIONS: DO YOU HAVE A HISTORY OF MRSA? :NO DO YOU TAKE A BLOOD THINNERS? :NO DO YOU HAVE ANY BLEEDING DISORDERS? :NO ANY NEW NUMBNESS OR WEAKNESS IN YOUR LEGS OR ARMS? :NO ANY PACEMAKER,DEFIBRILLATOR, OR DORSAL COLUMN STIMULATOR? :NO DO YOU HAVE ANY RASHES OR OPEN SORES? :NO ARE YOU ALLERGIC TO IV DYE? :NO ARE YOU DIABETIC? :NO ANY NEW PROBLEMS WITH YOUR MEDICATIONS? :NO HAVE YOU RECEIVED A VACCINE IN THE PAST 30 DAYS? :NO DO YOU PLAN TO RECEIVE A VACCINE IN THE NEXT 21 DAYS? :NO DO YOU NEED ANY PRESCRIPTION? :NO DO YOU TAKE ANY IMMUNOSUPPRESSIVE MEDICATIONS? :NO GENERAL: 54-YEAR-OLD MALE PATIENT WITH A HISTORY OF CHRONIC LOW BACK AND MAINLY LEFT LEG PAIN. THE PATENT HAD A SURGERY DONE A YEAR AGO AND UNFORTUNATELY THE PAIN HAS COME BACK. THE PATIENT DESCRIBES THE PAIN SHARP, SEVERE AND ACHING WITH A PAIN SCORE RANGING FROM 6-9/10 DEPENDING ON PHYSICAL ACTIVITY. THE PAIN IS MAINLY IN THE BACK WITH RADIATION TOWARDS THE LEFT BUTTOCK AND BACK OF THE LEG. THIS IS AFFECTING HIS ACTIVITIES SUCH WORKING, CLEANING AND GROCERY SHOPPING. PATIENT DENIES UNEXPLAINABLE WEIGHT LOSS, FEVER, CHILLS, NEW CHANGES ON URINARY OR BOWEL CONTROL. CURRENT MEDICATIONS TAKING METOPROLOL SUCCINATE 50 MG TABLET EXTENDED RELEASE ORALLY DAILY TAKING AMLODIPINE BESYLATE 10 MG TABLET 1/2 TABLET ORALLY ONCE A DAY TAKING ALLOPURINOL 100 MG TABLET 1 TABLET ORALLY TWICE A DAY TAKING TIZANIDINE HCL 2 MG TABLET 1 TABLET NEEDED ORALLY THREE TIMES A DAY TAKING PRAVASTATIN SODIUM 40 MG TABLET 1 TABLET ORALLY ONCE A DAY TAKING GABAPENTIN 300 MG CAPSULE ORALLY THREE TIMES A DAY TAKING LISINOPRIL 40 MG TABLET 1 TABLET ORALLY ONCE A DAY TAKING LEVETIRACETAM 500 MG TABLET 2 TABLETS ORALLY DAILY TAKING CELEBREX 200 MG CAPSULE 1 CAPSULE WITH FOOD ORALLY ONCE A DAY NOT-TAKING MELOXICAM 7.5 MG TABLET 1/2 TAB ORALLY DAILY AM, NOTES: 0900 NOT-TAKING IBUPROFEN 800 MG TABLET 1 TABLET WITH FOOD OR MILK NEEDED ORALLY THREE TIMES A DAY MDD3 NOT-TAKING MAY HAVE - - CBD OIL ONCE DAILY NEEDED MEDICATION LIST REVIEWED AND RECONCILED WITH THE PATIENT PAST MEDICAL HISTORY HYPERTENSIVE CARDIAC VASCULAR DISEASE TACHYCARDIA MIXED HYPERLIPIDEMIA TRAUMATIC BRAIN INJURY R/T ENCEPHALITIS IN 10/2015 DJD OF LUMBAR SPINE GOUT ALLERGIES XYLOCAINE: INCREASED HR - ALLERGY SURGICAL HISTORY FISTULA REPAIR 1984 L5-S1 DISCECTOMY 05/29/2019 FAMILY HISTORY FATHER: , DIAGNOSED WITH HYPERTENSION MOTHER: , OTHER MALIGNANT NEOPLASM OF UNSPECIFIED SITE 2 BROTHER(S) - HEALTHY. 1 SON(S) - HEALTHY. HISTORY REVIEWED 04/27/18@1530. SOCIAL HISTORY GENERAL: TOBACCO USE ARE YOU A:NONSMOKER LATEX QUESTIONNAIRE LATEX ALLERGY : HAVE YOU EVER DEVELOPED ANY TYPE OF REACTION AFTER HANDLING LATEX PRODUCTS SUCH RUBBER GLOVES, CONDOMS, DIAPHRAGMS, BALLOONS, SOCKS, OR UNDERWEAR?NO LATEX ALLERGY : HAVE YOU EVER DEVELOPED ANY TYPE OF REACTION DURING OR AFTER DENTAL APPOINTMENT, VAGINAL/RECTAL EXAMINATION, SURGICAL PROCEDURE, OR ANY OTHER EXPOSURE?NO LATEX RISK : HAVE YOU EVER HAD ANY DIFFICULTY BREATHING OR HIVES AFTER EATING OR HANDLING ANY FRUITS, OR VEGETABLES; SUCH KIWI, BANANAS, STONE FRUITS, OR CHESTNUTSNO LATEX RISK : DO YOU HAVE A PREVIOUS PERSONAL HISTORY OF MORE THAN NINE SURGERIES, SPINA BIFIDA, OR REPEATED CATHERIZATIONS? NO LATEX RISK : ARE YOU FREQUENTLY EXPOSED TO LATEX PRODUCTS IN YOUR OCCUPATION?NO DATE ASKED : 05/16/2020 ALCOHOL SCREENING DID YOU HAVE A DRINK CONTAINING ALCOHOL IN THE PAST YEAR?YES HOW OFTEN DID YOU HAVE SIX OR MORE DRINKS ON ONE OCCASION IN THE PAST YEAR?LESS THAN MONTHLY (1 POINT) HOW MANY DRINKS DID YOU HAVE ON A TYPICAL DAY WHEN YOU WERE DRINKING IN THE PAST YEAR?1 OR 2 (0 POINTS) HOW OFTEN DID YOU HAVE A DRINK CONTAINING ALCOHOL IN THE PAST YEAR?FOUR OR MORE TIMES A WEEK (4 POINTS) POINTS5 INTERPRETATIONPOSITIVE RECREATIONAL DRUG USE DRUG USE?NO CAFFEINE CAFFEINE USE?YES 2 CUP DAILY HOW OFTEN AND HOW MUCH? 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 DIET: REGULAR. EXERCISE: WALKS. MARITAL STATUS: SINGLE. OTHERS AT HOME: NONE. IMMUNIZATION PROGRAM NONE. PAIN CLINIC PFS, CLERGY, PUBLIC HEALTH REFERRALS PFS REFERRAL NEEDED?NO CLERGY REFERRAL NEEDED?NO PUBLIC HEALTH REFERRAL NEEDED?NO WAS THE PROVIDER NOTIFIED OF ANY PERTINENT INFO? N/A HAS THE PATIENT BEEN EDUCATED REGARDING HIS/HER PLAN OF CARE?YES HAS THE PATIENT BEEN EDUCATED REGARDING PAIN, THE RISK FOR PAIN, THE IMPORTANCE OF EFFECTIVE PAIN MANAGEMENT, AND THE PAIN ASSESSMENT PROCESS?YES ADVANCE DIRECTIVE ADVANCE DIRECTIVE DISCUSSED WITH PATIENT:YES HCP FILED PT BROTHER ALEXSANDRA VILLALPANDO [phone] HOSPITALIZATION/MAJOR DIAGNOSTIC PROCEDURE ENCEPHALITIS 10/2015 REVIEW OF SYSTEMS CONSTITUTIONAL: ANY RECENT FEVER NO . CHILLS NO . WEIGHT CHANGE OF UNKNOWN REASONS NO . GASTROENTEROLOGY: NEW UNEXPLAINABLE CHANGES IN BOWEL CONTROL NO . CONSTIPATION NO . GENITOURINARY: ANY NEW CHANGE IN BLADDER CONTROL? NO . NEUROLOGY: NEW ONSET DIZZINESS OR NEUROLOGICAL CHANGES NOT MENTIONED NO . NEW NUMBNESS OR PAIN PATTERNS NOT MENTIONED AND PERTINENT TO TODAY'S VISIT NO . CARDIOLOGY: NEW CHEST PRESSURE NO . NEW CHEST PAIN NO . RESPIRATORY: UNEXPLAINABLE COUGH NO . NEW SHORTNESS OF BREATH NO . VITAL SIGNS WT 201.2 LBS, HT 72 IN, BMI 27.28 INDEX, BP 133/77 MM HG, HR 101 /MIN, RR 18 /MIN, TEMP 97.8 F, OXYGEN SAT % 99%, SAFE IN ENV? (Y/N) YES, NA INITIALS SC 15:27, REVIEWED BY: MANUEL AGUILAR RN. EXAMINATION GENERAL EXAMINATION: THE PATIENT IS ALERT, ORIENTED TIMES THREE AND COOPERATIVE. HEART SHOWS REGULAR RHYTHM, NO MURMURS AND NO GALLOPS. LUNGS ARE CLEAR TO AUSCULTATION. THE LEFT LEG IS WEAKER THAN THE RIGHT LEG ON FLEXION AND EXTENSION. STRAIGHT LEG RAISE IS POSITIVE FOR RADICULOPATHY ON THE LEFT AT 50 DEGREES. LUMBAR MRI DATED 04/23/2020 SHOWS BULGING DISC AT MULTIPLE LEVELS INCLUDING L4-L5. ASSESSMENTS LUMBAR POST-LAMINECTOMY SYNDROME - M96.1 (PRIMARY) TREATMENT LUMBAR POST-LAMINECTOMY SYNDROME NOTES: 05/16/20 1630 NURSE PROVIDED PREPROCEDURE TEACHING TO PATIENT AND PROVIDED HAND OUT FOR CAUDAL EPIDURAL STEROID INJECTION, [facility] ALLOPURINOL SENT BY CARDIOVASCULAR INVASIVE SPECIALIST, WAITING RESPONSE AT THIS TIME. PATIENT VERBALIZED UNDERSTANDING. Landry AGUILAR RN BSN. CLINICAL NOTES: I DISCUSSED ALTERNATIVES WITH MR. VILLALPANDO. WE DISCUSSED POSSIBLY DOING MORE INJECTION THERAPY INCLUDING EPIDURALS OR MEDICATION MANAGEMENT AND DORSAL COLUMN STIMULATOR TRIAL. I WILL REQUEST AUTHORIZATION FOR A CAUDAL STEROID INJECTION WITH A CATHETER, BOOK AFTER APPROVED. THE PATIENT WILL BE GONE FOR FROM June TO THE . THE PATIENT SHOULD FOLLOW UP WITH ME AFTER THE INJECTION. THE PATIENT REPORTS UNDERSTANDING AND AGREES WITH THE PLAN. I, SURESH EAST, DOCUMENTED THE ABOVE INFORMATION ACTING A SCRIBE FOR DR. DICKERSON. I HAVE REVIEWED THE ABOVE DOCUMENT, WRITTEN BY SURESH EAST, PIANO TUNER, AND I VERIFY THAT IT IS ACCURATE. PROCEDURE CODES FA211 ESTABILISHED PATIENT [facility] FACILITY CHARGE [id number] OFFICE/OUTPATIENT VISIT EST DISPOSITION & COMMUNICATION FOLLOW UP REQUEST AUTH FOR CAUDAL STEROID INJECTION WITH A CATHETER. FOLLOW UP WITH DR. Starkey AFTER THE INJECTION. (REASON: TRY TO BOOK THE PATIENT'S INJECTION FOR THE BEGINNING OF JUNE BEFORE ) ELECTRONICALLY SIGNED BY GONZALEZ DICKERSON MD, MD ON 05/17/2020 AT 04:55 PM EST DISCLAIMER : THIS IS A VISIT SUMMARY EXTRACTED FROM THE [employer] CHART. IT IS NOT A COPY OF THE [employer] PROGRESS NOTE. MTDD
== END ==
LOC: M PAIN 15:15
PROVIDERS: ATTEND Anesthesiology
DX: M96.1 Postlaminectomy syndrome, not elsewhere classified (principal); Z87.820 Personal history of traumatic brain injury; Z88.4 Allergy status to anesthetic agent; Z79.899 Other long term (current) drug therapy

== ENCOUNTER → 2020-06-14 | Outpatient (CLI) | payer OTHER | LOC: M LABSMTC 13:00 | PROVIDERS: ATTEND Anesthesiology | DX: Z01.812 Encounter for preprocedural laboratory examination (principal); Z20.822 Contact with and (suspected) exposure to COVID-19 ==

== ENCOUNTER → 2020-06-18 | Outpatient (CLI) | payer OTHER ==
[~2020-06-18] MED LIST changes: +ISOVUE-M 300 61% 15ML VIAL As Ordered ONE; +LIDOCAINE 1% SDV 30ML VIAL As Ordered ONE; +diazePAM 5MG TABLET As Ordered ONE; +methylPREDNISolone SUSP 40MG/ML 1ML VIAL (DEPO MEDROL) As Ordered ONE; +oxyCODONE 5MG TAB As Ordered ONE
--- NOTE | 2020-06-18 21:34 | REP ---
INDICATION: CAUDAL STEROID INJECTION WITH CATHETER. COMPARISON: None. TECHNIQUE: Intraoperative fluoroscopic imaging using portable C-arm technique. FINDINGS: Images demonstrate satisfactory catheter placement and contrast administration for caudal steroid injection. Total fluoroscopic time 24.6 seconds IMPRESSION: Satisfactory caudal steroid injection imaging. <Electronically signed by Brad Yang > 06/18/20 [id number]
== END ==
LOC: M PAIN 09:30
PROVIDERS: ATTEND Anesthesiology
DX: M96.1 Postlaminectomy syndrome, not elsewhere classified (principal); Z87.820 Personal history of traumatic brain injury; Z88.4 Allergy status to anesthetic agent; Z79.899 Other long term (current) drug therapy
CPT/HCPCS: 62323; J1030; Q9967

== ENCOUNTER → 2020-07-05 | Outpatient (CLI) | payer OTHER ==
[~2020-07-05] MED LIST changes: -ISOVUE-M 300 61% 15ML VIAL As Ordered ONE; -LIDOCAINE 1% SDV 30ML VIAL As Ordered ONE; -diazePAM 5MG TABLET As Ordered ONE; -methylPREDNISolone SUSP 40MG/ML 1ML VIAL (DEPO MEDROL) As Ordered ONE; -oxyCODONE 5MG TAB As Ordered ONE
--- NOTE | 2020-07-10 02:37 | ECWPNPC ---
PATIENT NAME: ELLY VILLALPANDO : 1965 GENDER: MALE VISIT DATE: 07/05/2020 DISCHARGE DATE: 07/05/20 09 VISIT LOCKED DATE TIME: PHYSICIAN: GONZALEZ DICKERSON MD RESOURCE: GONZALEZ DICKERSON MD REASON FOR APPOINTMENT 1. POST CAUDAL EPIDURAL STEROID INJECTION HISTORY OF PRESENT ILLNESS GENERAL: 55-YEAR-OLD MALE PATIENT WITH A HISTORY OF CHRONIC LOW BACK AND MAINLY LEFT LEG PAIN. THE PATIENT DESCRIBES THE PAIN CONTINUOUS AND STABBING WITH A PAIN SCORE RANGING FROM 4-8/10 IN THE BACK WITH RADIATION TO MAINLY THE BACK OF THE LEFT LEG. HE HAS A HISTORY OF A SURGERY IN THE BACK AREA, MAY 29, 2019. THE SURGERY DID NOT HELP HIM. WE DID A CAUDAL 2 WEEKS AGO AND THE PATIENT GOT WORSE. HE IS HAVING MORE DIFFICULTY MOVING AROUND AND NOW HE USES TIZANIDINE TO HELP HIM SLEEP. FALL RISK SCREENING: SCREENING :NO FALLS REPORTED IN THE LAST YEAR PAIN SCREENING: PATIENT HAS A COMPLAINT OF ACUTE OR CHRONIC PAIN :YES LOCATION OF PAIN:LOW BACK, LEFT HIP, OTHER: LEFT BUTTOCK INTENSITY OF PAIN (SCALE OF 1 TO 10):7 WHAT DOES YOUR PAIN FEEL LIKE:CONTINOUS, STABBING DURATION:CONTINOUS PAIN IS INCREASED BY:ACTIVITIES, OTHERS PROLONGED SITTING PAIN IS DECREASED BY:OTHERS WALKING PAIN HAS INTERFERED WITH THE FOLLOWING:EMPLOYMENT, TRANSPORTATION PLAN/GOALS/TREATMENT/INTERVENTION/FOLLOW UP:SEE PLAN PAIN CENTER INTAKE QUESTIONS: DO YOU HAVE A HISTORY OF MRSA? :NO DO YOU TAKE A BLOOD THINNERS? :NO DO YOU HAVE ANY BLEEDING DISORDERS? :NO ANY NEW NUMBNESS OR WEAKNESS IN YOUR LEGS OR ARMS? :NO ANY PACEMAKER,DEFIBRILLATOR, OR DORSAL COLUMN STIMULATOR? :NO DO YOU HAVE ANY RASHES OR OPEN SORES? :NO ARE YOU ALLERGIC TO IV DYE? :NO ARE YOU DIABETIC? :NO ANY NEW PROBLEMS WITH YOUR MEDICATIONS? :NO HAVE YOU RECEIVED A VACCINE IN THE PAST 30 DAYS? :NO DO YOU PLAN TO RECEIVE A VACCINE IN THE NEXT 21 DAYS? :NO DO YOU NEED ANY PRESCRIPTION? :NO DO YOU TAKE ANY IMMUNOSUPPRESSIVE MEDICATIONS? :YES ALLOPURINOL CURRENT MEDICATIONS TAKING METOPROLOL SUCCINATE 50 MG TABLET EXTENDED RELEASE ORALLY DAILY TAKING AMLODIPINE BESYLATE 10 MG TABLET 1/2 TABLET ORALLY ONCE A DAY TAKING ALLOPURINOL 100 MG TABLET 1 TABLET ORALLY ONCE A DAY TAKING TIZANIDINE HCL 2 MG TABLET 1 TABLET NEEDED ORALLY THREE TIMES A DAY TAKING PRAVASTATIN SODIUM 40 MG TABLET 1 TABLET ORALLY ONCE A DAY TAKING GABAPENTIN 300 MG CAPSULE 3TABS ORALLY THREE TIMES A DAY TAKING LISINOPRIL 40 MG TABLET 1 TABLET ORALLY ONCE A DAY TAKING LEVETIRACETAM 500 MG TABLET 2 TABLETS ORALLY DAILY TAKING CELEBREX 200 MG CAPSULE 1 CAPSULE WITH FOOD ORALLY BID NOT-TAKING MELOXICAM 7.5 MG TABLET 1/2 TAB ORALLY DAILY AM, NOTES: 0900 NOT-TAKING IBUPROFEN 800 MG TABLET 1 TABLET WITH FOOD OR MILK NEEDED ORALLY THREE TIMES A DAY MDD3 NOT-TAKING MAY HAVE - - CBD OIL ONCE DAILY NEEDED MEDICATION LIST REVIEWED AND RECONCILED WITH THE PATIENT PAST MEDICAL HISTORY HYPERTENSIVE CARDIAC VASCULAR DISEASE TACHYCARDIA MIXED HYPERLIPIDEMIA TRAUMATIC BRAIN INJURY R/T ENCEPHALITIS IN 10/2015 DJD OF LUMBAR SPINE GOUT ALLERGIES XYLOCAINE: INCREASED HR - ALLERGY SOCIAL HISTORY GENERAL: TOBACCO USE ARE YOU A:NONSMOKER LATEX QUESTIONNAIRE LATEX ALLERGY : HAVE YOU EVER DEVELOPED ANY TYPE OF REACTION AFTER HANDLING LATEX PRODUCTS SUCH RUBBER GLOVES, CONDOMS, DIAPHRAGMS, BALLOONS, SOCKS, OR UNDERWEAR?NO LATEX ALLERGY : HAVE YOU EVER DEVELOPED ANY TYPE OF REACTION DURING OR AFTER DENTAL APPOINTMENT, VAGINAL/RECTAL EXAMINATION, SURGICAL PROCEDURE, OR ANY OTHER EXPOSURE?NO LATEX RISK : HAVE YOU EVER HAD ANY DIFFICULTY BREATHING OR HIVES AFTER EATING OR HANDLING ANY FRUITS, OR VEGETABLES; SUCH KIWI, BANANAS, STONE FRUITS, OR CHESTNUTSNO LATEX RISK : DO YOU HAVE A PREVIOUS PERSONAL HISTORY OF MORE THAN NINE SURGERIES, SPINA BIFIDA, OR REPEATED CATHERIZATIONS? NO LATEX RISK : ARE YOU FREQUENTLY EXPOSED TO LATEX PRODUCTS IN YOUR OCCUPATION?NO DATE ASKED : 07/05/2020 ALCOHOL USE: LANDEN AGUILAR 07/05/2020 3:38:13 PM > , YES, 1-2 ALCOHOLIC BEVERAGES A DAY.. ALCOHOL SCREENING DID YOU HAVE A DRINK CONTAINING ALCOHOL IN THE PAST YEAR?YES HOW OFTEN DID YOU HAVE SIX OR MORE DRINKS ON ONE OCCASION IN THE PAST YEAR?LESS THAN MONTHLY (1 POINT) HOW MANY DRINKS DID YOU HAVE ON A TYPICAL DAY WHEN YOU WERE DRINKING IN THE PAST YEAR?1 OR 2 (0 POINTS) HOW OFTEN DID YOU HAVE A DRINK CONTAINING ALCOHOL IN THE PAST YEAR?FOUR OR MORE TIMES A WEEK (4 POINTS) POINTS5 INTERPRETATIONPOSITIVE RECREATIONAL DRUG USE DRUG USE?NO CAFFEINE CAFFEINE USE?YES 2 CUP DAILY HOW OFTEN AND HOW MUCH? DAILY [employer]RI[employer] [id number] JEW LANGUAGE LANGUAGES SPOKEN:MALTESE LEARNING BARRIERS / SPECIAL NEEDS CHANGE FROM LAST VISIT?NO BARRIERS TO LEARNING?NO HEARING IMPAIRED?NO VISION IMPAIRED?NO COGNITIVELY IMPAIRED?NO READINESS TO LEARN?YES LEARNING PREFERENCES?NO LEARNING CAPABILITIES PRESENT?YES EMOTIONAL BARRIERS?NO SPECIAL DEVICES?NO DIRECTOR WEB NEEDED?NO DOMESTIC VIOLENCE DO YOU FEEL SAFE IN YOUR ENVIRONMENT?YES OCCUPATION: DETAILER SCHOOL PHOTOGRAPHS AND BED BREAKFAST. DIET: REGULAR. EXERCISE: WALKS. MARITAL STATUS: SINGLE. OTHERS AT HOME: NONE. IMMUNIZATION PROGRAM NONE. - PFS REFERRAL NEEDED?NO CLERGY REFERRAL NEEDED?NO PUBLIC HEALTH REFERRAL NEEDED?NO WAS THE PROVIDER NOTIFIED OF ANY PERTINENT INFO? N/A HAS THE PATIENT BEEN EDUCATED REGARDING HIS/HER PLAN OF CARE?YES HAS THE PATIENT BEEN EDUCATED REGARDING PAIN, THE RISK FOR PAIN, THE IMPORTANCE OF EFFECTIVE PAIN MANAGEMENT, AND THE PAIN ASSESSMENT PROCESS?YES ADVANCE DIRECTIVE ADVANCE DIRECTIVE DISCUSSED WITH PATIENT:YES HCP FILED PT BROTHER ALEXSANDRA VILLALPANDO [phone] REVIEW OF SYSTEMS CONSTITUTIONAL: ANY RECENT FEVER NO . CHILLS NO . WEIGHT CHANGE OF UNKNOWN REASONS NO . GASTROENTEROLOGY: NEW UNEXPLAINABLE CHANGES IN BOWEL CONTROL NO . CONSTIPATION NO . GENITOURINARY: ANY NEW CHANGE IN BLADDER CONTROL? NO . NEUROLOGY: NEW ONSET DIZZINESS OR NEUROLOGICAL CHANGES NOT MENTIONED NO . NEW NUMBNESS OR PAIN PATTERNS NOT MENTIONED AND PERTINENT TO TODAY'S VISIT NO . CARDIOLOGY: NEW CHEST PRESSURE NO . NEW CHEST PAIN NO . RESPIRATORY: UNEXPLAINABLE COUGH NO . NEW SHORTNESS OF BREATH NO . VITAL SIGNS WT 203 LBS, HT 72 IN, BMI 27.53 INDEX, BP 158/92 MM HG, HR 70 /MIN, RR 18 /MIN, TEMP 99.3 F, OXYGEN SAT % 98%, SAFE IN ENV? (Y/N) YES, NA INITIALS SC 15:31, REVIEWED BY: SOREN WILLIAM. EXAMINATION GENERAL EXAMINATION: THE PATIENT IS ALERT, ORIENTED TIMES THREE AND COOPERATIVE. LUNGS ARE CLEAR TO AUSCULTATION. HEART SHOWS REGULAR RHYTHM, NO MURMURS AND NO GALLOPS. HIS WALK IS ANTAGLIC. HE SEEMS TO BE LIMPING MORE FROM THE LEFT LEG WHICH IS WEAKER THAN THE RIGHT LEG ON FLEXION AND EXTENSION. STRAIGHT LEG RAISE IS POSITIVE FOR RADICULOPATHY AT 50 DEGREES. MRI OF THE LUMBAR DATED 05/23/2020 SHOWS BULGING DISC AT MULTIPLE LEVELS. ASSESSMENTS OTHER CHRONIC PAIN - G89.29 INTERVERTEBRAL DISC DISORDER WITH RADICULOPATHY OF LUMBOSACRAL REGION - M51.17 LUMBAR POST-LAMINECTOMY SYNDROME - M96.1 TREATMENT OTHER CHRONIC PAIN START HYDROCODONE-ACETAMINOPHEN TABLET, 5-325 MG, 1 TABLET NEEDED, ORALLY FOR PAIN, DAILY MDD1, 15 DAYS, 15, REFILLS 0 PAIN PROCEDURE LOGDATE OF [id number]/21PROCEDURE:CAUDAL EPIDURAL STEROID INJECTIONAMOUNT OF PRE SEDATEVALIUM 10MG PO, OXYCODONE 10MG PORESULT:TOO SOON TO TELL INTERVERTEBRAL DISC DISORDER WITH RADICULOPATHY OF LUMBOSACRAL REGION CLINICAL NOTES: I DISCUSSED ALTERNATIVES WITH MR. RODRIGUEZ. WE PERFORMED A CAUDAL EPIDURAL WITH A CATHETER TO L5-S1 AND THE PAIN HAS BEEN AGGRAVATED. I TOLD HIM THAT I FEEL THAT IT IS TOO EARLY TO DETERMINE IF THE INJECTION HELPED OR NOT. WE ARE GOING TO TRY MEDICATION MANAGEMENT. THE PATIENT IS SLEEPING WELL WITH THE TIZANIDINE AND NEEDS HELP DURING THE DAY. HE HAS TRIED HYDROCODONE IN THE PAST THAT HAS HELPED SO I WILL GIVE HIM A 2 WEEK PRESCRIPTION 1 TABLET A DAY. WE WILL FOLLOW UP WITH THE PATIENT OVER THE PHONE NEXT WEEK. I REVIEWED THE ISTOP, REFERENCE NUMBER [id number]. DEPENDING ON HOW HE DOES, WE CAN CONSIDER A LEFT TRANSFORAMINAL EPIDURAL STEROID INJECTION L4-L5, L5-S1 AND DEPENDING ON THE RESULTS, CONSIDER A SPINAL COLUMN STIMULATOR TRIAL. THE PATIENT REPORTS UNDERSTANDING AND AGREES WITH THE PLAN. I, SURESH AEST, DOCUMENTED THE ABOVE INFORMATION ACTING A SCRIBE FOR DR. DICKERSON. I HAVE REVIEWED THE ABOVE DOCUMENT, WRITTEN BY SURESH EAST, CARDIOPULMONARY PHYSICAL THERAPIST, AND I VERIFY THAT IT IS ACCURATE. PROCEDURE CODES FA211 ESTABILISHED PATIENT [facility] CHARGE [id number] OFFICE/OUTPATIENT VISIT EST DISPOSITION & COMMUNICATION FOLLOW UP FOLLOW UP NEXT WEDNESDAY A VIRTUAL VISIT (REASON: FOLLOW UP-LOW BACK, POST CAUDAL ) ELECTRONICALLY SIGNED BY GONZAELZ DICKERSON MD, MD ON 07/09/2020 AT 12:41 PM EST DISCLAIMER : THIS IS A VISIT SUMMARY EXTRACTED FROM THE [employer] CHART. IT IS NOT A COPY OF THE [employer] PROGRESS NOTE. LORENED
== END ==
LOC: M PAIN 14:45
PROVIDERS: ATTEND Anesthesiology
DX: G89.29 Other chronic pain (principal); M51.17 Intervertebral disc disorders with radiculopathy, lumbosacral region; M96.1 Postlaminectomy syndrome, not elsewhere classified; Z87.820 Personal history of traumatic brain injury; Z88.4 Allergy status to anesthetic agent; Z79.899 Other long term (current) drug therapy

== ENCOUNTER → 2020-07-10 | Outpatient (CLI) | payer OTHER ==
--- NOTE | 2020-07-11 23:33 | ECWPNPC ---
PATIENT NAME: ELLY VILLALPANDO : 1965 GENDER: MALE VISIT DATE: 07/10/2020 DISCHARGE DATE: 07/10/20 1216 VISIT LOCKED DATE TIME: PHYSICIAN: GONZALEZ DICKERSON MD RESOURCE: GONZALEZ DICKERSON MD REASON FOR APPOINTMENT 1. FOLLOW UP-LOW BACK, POST CAUDAL HISTORY OF PRESENT ILLNESS GENERAL: PERMISSION FROM PATIENT WAS RECEIVED TO DO TELEPHONE OFFICE VISIT. 55-YEAR-OLD MALE PATIENT WITH A HISTORY OF CHRONIC LOW BACK AND MAINLY LEFT LEG PAIN. THE PATIENT RECEIVED A CAUDAL INJECTION THAT DID NOT HELP HIM AND ACTUALLY MADE IT WORSE. WE HAVE BEEN MANAGING HIS PAIN WITH HYDROCODONE 1 A DAY DURING THE NIGHT. THE PATIENT USES GABAPENTIN AT NIGHT. HE FEELS THAT USING 2 TABLETS A DAY MAY HELP HIS FUNCTIONALITY BETTER. FALL RISK SCREENING: SCREENING :NO FALLS REPORTED IN THE LAST YEAR PAIN SCREENING: PATIENT HAS A COMPLAINT OF ACUTE OR CHRONIC PAIN :YES LOCATION OF PAIN:LOW BACK, LEFT HIP LOWER LEFT BACK, LEFT HIP AND INTO LEFT BUTTOCK INTENSITY OF PAIN (SCALE OF 1 TO 10):6 WHAT DOES YOUR PAIN FEEL LIKE:CONTINOUS, STABBING DURATION:CONTINOUS PAIN IS INCREASED BY:OTHERS PROLONGED SITTING, BENDING OVER PAIN IS DECREASED BY:OTHERS WALKING ON TREADMILL, ICE NURSING NOTE: -. PAIN CENTER INTAKE QUESTIONS: DO YOU HAVE A HISTORY OF MRSA? :NO DO YOU TAKE A BLOOD THINNERS? :NO DO YOU HAVE ANY BLEEDING DISORDERS? :NO ANY NEW NUMBNESS OR WEAKNESS IN YOUR LEGS OR ARMS? :NO ANY PACEMAKER,DEFIBRILLATOR, OR DORSAL COLUMN STIMULATOR? :NO DO YOU HAVE ANY RASHES OR OPEN SORES? :YES ARE YOU ALLERGIC TO IV DYE? :NO ARE YOU DIABETIC? :NO ANY NEW PROBLEMS WITH YOUR MEDICATIONS? :NO HAVE YOU RECEIVED A VACCINE IN THE PAST 30 DAYS? :NO DO YOU PLAN TO RECEIVE A VACCINE IN THE NEXT 21 DAYS? :NO DO YOU NEED ANY PRESCRIPTION? :YES PATIENT STATES HE NEEDS A REFILL FOR HYDROCODONE 5/325 MG AND IS ALSO REQUESTING AN INCREASE IN MDD OR DOSE. DO YOU TAKE ANY IMMUNOSUPPRESSIVE MEDICATIONS? :NO IS THERE A CHANCE YOU COULD BE ? :NO ARE YOU BREAST FEEDING? :NO CURRENT MEDICATIONS TAKING METOPROLOL SUCCINATE 50 MG TABLET EXTENDED RELEASE ORALLY DAILY TAKING AMLODIPINE BESYLATE 10 MG TABLET 1/2 TABLET ORALLY ONCE A DAY TAKING ALLOPURINOL 100 MG TABLET 1 TABLET ORALLY ONCE A DAY TAKING TIZANIDINE HCL 2 MG TABLET 1 TABLET NEEDED ORALLY THREE TIMES A DAY TAKING PRAVASTATIN SODIUM 40 MG TABLET 1 TABLET ORALLY ONCE A DAY TAKING GABAPENTIN 300 MG CAPSULE 3TABS ORALLY THREE TIMES A DAY TAKING LISINOPRIL 40 MG TABLET 1 TABLET ORALLY ONCE A DAY TAKING LEVETIRACETAM 500 MG TABLET 2 TABLETS ORALLY DAILY TAKING CELEBREX 200 MG CAPSULE 1 CAPSULE WITH FOOD ORALLY BID TAKING HYDROCODONE-ACETAMINOPHEN 5-325 MG TABLET 1 TABLET NEEDED ORALLY FOR PAIN DAILY MDD1 NOT-TAKING MELOXICAM 7.5 MG TABLET 1/2 TAB ORALLY DAILY AM, NOTES: 0900 NOT-TAKING IBUPROFEN 800 MG TABLET 1 TABLET WITH FOOD OR MILK NEEDED ORALLY THREE TIMES A DAY MDD3 NOT-TAKING MAY HAVE - - CBD OIL ONCE DAILY NEEDED MEDICATION LIST REVIEWED AND RECONCILED WITH THE PATIENT PAST MEDICAL HISTORY HYPERTENSIVE CARDIAC VASCULAR DISEASE TACHYCARDIA MIXED HYPERLIPIDEMIA TRAUMATIC BRAIN INJURY R/T ENCEPHALITIS IN 10/2015 DJD OF LUMBAR SPINE GOUT ALLERGIES XYLOCAINE: INCREASED HR - ALLERGY SURGICAL HISTORY FISTULA REPAIR 1984 L5-S1 DISCECTOMY 05/29/2019 SOCIAL HISTORY GENERAL: TOBACCO USE ARE YOU A:NONSMOKER LATEX QUESTIONNAIRE LATEX ALLERGY : HAVE YOU EVER DEVELOPED ANY TYPE OF REACTION AFTER HANDLING LATEX PRODUCTS SUCH RUBBER GLOVES, CONDOMS, DIAPHRAGMS, BALLOONS, SOCKS, OR UNDERWEAR?NO LATEX ALLERGY : HAVE YOU EVER DEVELOPED ANY TYPE OF REACTION DURING OR AFTER DENTAL APPOINTMENT, VAGINAL/RECTAL EXAMINATION, SURGICAL PROCEDURE, OR ANY OTHER EXPOSURE?NO LATEX RISK : HAVE YOU EVER HAD ANY DIFFICULTY BREATHING OR HIVES AFTER EATING OR HANDLING ANY FRUITS, OR VEGETABLES; SUCH KIWI, BANANAS, STONE FRUITS, OR CHESTNUTSNO LATEX RISK : DO YOU HAVE A PREVIOUS PERSONAL HISTORY OF MORE THAN NINE SURGERIES, SPINA BIFIDA, OR REPEATED CATHERIZATIONS? NO LATEX RISK : ARE YOU FREQUENTLY EXPOSED TO LATEX PRODUCTS IN YOUR OCCUPATION?NO DATE ASKED : 07/10/2020 ALCOHOL USE: LANDEN AGUILAR 07/05/2020 3:38:13 PM > , YES, 1-2 ALCOHOLIC BEVERAGES A DAY.. ALCOHOL SCREENING DID YOU HAVE A DRINK CONTAINING ALCOHOL IN THE PAST YEAR?YES HOW OFTEN DID YOU HAVE SIX OR MORE DRINKS ON ONE OCCASION IN THE PAST YEAR?LESS THAN MONTHLY (1 POINT) HOW MANY DRINKS DID YOU HAVE ON A TYPICAL DAY WHEN YOU WERE DRINKING IN THE PAST YEAR?1 OR 2 (0 POINTS) HOW OFTEN DID YOU HAVE A DRINK CONTAINING ALCOHOL IN THE PAST YEAR?FOUR OR MORE TIMES A WEEK (4 POINTS) POINTS5 INTERPRETATIONPOSITIVE RECREATIONAL DRUG USE DRUG USE?NO CAFFEINE CAFFEINE USE?YES 2 CUP DAILY HOW OFTEN AND HOW MUCH? DAILY RESTORATIONIST [id number] ISLAM LANGUAGE LANGUAGES SPOKEN:BRITISH LEARNING BARRIERS / SPECIAL NEEDS CHANGE FROM LAST VISIT?NO BARRIERS TO LEARNING?NO HEARING IMPAIRED?NO VISION IMPAIRED?NO COGNITIVELY IMPAIRED?NO READINESS TO LEARN?YES LEARNING PREFERENCES?NO LEARNING CAPABILITIES PRESENT?YES EMOTIONAL BARRIERS?NO SPECIAL DEVICES?NO TIMBER REPAIRER NEEDED?NO DOMESTIC VIOLENCE DO YOU FEEL SAFE IN YOUR ENVIRONMENT?YES OCCUPATION: ARMOR OFFICER AND BED BREAKFAST. DIET: REGULAR. EXERCISE: WALKS. MARITAL STATUS: SINGLE. OTHERS AT HOME: NONE. IMMUNIZATION PROGRAM NONE. - PFS REFERRAL NEEDED?NO CLERGY REFERRAL NEEDED?NO PUBLIC HEALTH REFERRAL NEEDED?NO WAS THE PROVIDER NOTIFIED OF ANY PERTINENT INFO? N/A HAS THE PATIENT BEEN EDUCATED REGARDING HIS/HER PLAN OF CARE?YES HAS THE PATIENT BEEN EDUCATED REGARDING PAIN, THE RISK FOR PAIN, THE IMPORTANCE OF EFFECTIVE PAIN MANAGEMENT, AND THE PAIN ASSESSMENT PROCESS?YES ADVANCE DIRECTIVE ADVANCE DIRECTIVE DISCUSSED WITH PATIENT:YES HCP FILED PT BROTHER ALEXSANDRA VILLALPANDO [phone] HOSPITALIZATION/MAJOR DIAGNOSTIC PROCEDURE ENCEPHALITIS 10/2015 REVIEW OF SYSTEMS CONSTITUTIONAL: ANY RECENT FEVER NO . CHILLS NO . WEIGHT CHANGE OF UNKNOWN REASONS NO . GASTROENTEROLOGY: NEW UNEXPLAINABLE CHANGES IN BOWEL CONTROL NO . CONSTIPATION NO . GENITOURINARY: ANY NEW CHANGE IN BLADDER CONTROL? NO . NEUROLOGY: NEW ONSET DIZZINESS OR NEUROLOGICAL CHANGES NOT MENTIONED NO . NEW NUMBNESS OR PAIN PATTERNS NOT MENTIONED AND PERTINENT TO TODAY'S VISIT NO . CARDIOLOGY: NEW CHEST PRESSURE NO . NEW CHEST PAIN NO . RESPIRATORY: UNEXPLAINABLE COUGH NO . NEW SHORTNESS OF BREATH NO . EXAMINATION GENERAL EXAMINATION: THIS IS A TELEPHONE VISIT. THE PATIENT IS ALERT, ORIENTED TIMES THREE AND COOPERATIVE. LUMBAR MRI DATED 05/2020 SHOWS POST LAMINECTOMY CHANGES. ASSESSMENTS LUMBAR POST-LAMINECTOMY SYNDROME - M96.1 (PRIMARY), RISK: (NULL) LUMBAR RADICULOPATHY - M54.16 TREATMENT LUMBAR POST-LAMINECTOMY SYNDROME CONTINUE HYDROCODONE-ACETAMINOPHEN TABLET, 5-325 MG, 1 TO 2 TABLET NEEDED, ORALLY FOR PAIN, DAILY MDD 2, 30 DAYS, 50, REFILLS 0 CLINICAL NOTES: I DISCUSSED ALTERNATIVES WITH MR. VILLALPANDO. I REVIEWED THE ISTOP REFERENCE NUMBER [id number]. I AM GOING TO INCREASE HIS HYDROCODONE FROM 1 TABLET TO 2 TABLETS A DAY. I DISCUSSED WITH HIM THE POTENTIAL RISK OF ADDICTION AND RESPIRATORY DEPRESSION. HE IS VERY CAREFUL WITH THE MEDICATION AND HE WILL USE THE MEDICATIONS ON AN NEEDED BASIS. IN THE FUTURE, WE CAN DO A TRANSFORAMINAL OR A DORSAL COLUMN STIMULATOR. THE PATIENT IS GOING TO THINK ABOUT THIS AND LET ME KNOW. THE PATIENT WILL FOLLOW UP WITH ME OVER THE PHONE IN 3 WEEKS TO SEE HOW HE IS DOING. START TIME WAS 4:00 PM AND END TIME 4:15. TOTAL TIME WAS 14 MINUTES. THE PATIENT REPORTS UNDERSTANDING AND AGREES WITH THE PLAN. I, SURESH EAST, DOCUMENTED THE ABOVE INFORMATION ACTING A SCRIBE FOR DR. DICKERSON. I HAVE REVIEWED THE ABOVE DOCUMENT, WRITTEN BY SURESH EAST, MACHINE FITTER, AND I VERIFY THAT IT IS ACCURATE. OTHERS NOTES: VITAL SIGNS NOT COMPLETED DUE TO VIRTUAL VISIT 07/10/2020 Antonio UP RN. PROCEDURE CODES 00264 TELEMEDICINE PHONE E/M BY MONY 11-20 MIN DISPOSITION & COMMUNICATION FOLLOW UP FOLLOW UP AT 3:00 PHONE VISIT (REASON: MED MANAGEMENT/FOLLOW UP) ELECTRONICALLY SIGNED BY GONZALEZ DICKERSON MD, MD ON 07/11/2020 AT 03:10 PM EST DISCLAIMER : THIS IS A VISIT SUMMARY EXTRACTED FROM THE [employer] CHART. IT IS NOT A COPY OF THE [employer] PROGRESS NOTE. KIANA
== END ==
LOC: M PAIN 15:15
PROVIDERS: ATTEND Anesthesiology
DX: M96.1 Postlaminectomy syndrome, not elsewhere classified (principal); M54.16 Radiculopathy, lumbar region; Z87.820 Personal history of traumatic brain injury; Z88.4 Allergy status to anesthetic agent; Z79.899 Other long term (current) drug therapy

== ENCOUNTER → 2020-10-01 | Outpatient (CLI) | payer OTHER ==
[~2020-10-01] MED LIST changes: -LISI40TA PO; +LISI40TA4 PO
--- NOTE | 2020-10-11 01:11 | ECWPNPC ---
PATIENT NAME: ELLY VILLALPANDO : 1965 GENDER: MALE VISIT DATE: 10/01/2020 DISCHARGE DATE: 10/01/20 1330 VISIT LOCKED DATE TIME: PHYSICIAN: GONZALEZ DICKERSON MD RESOURCE: GONZALEZ DICKERSON MD REASON FOR APPOINTMENT 1. MED MANAGEMENT/FOLLOW UP HISTORY OF PRESENT ILLNESS GENERAL: PERMISSION FROM PATIENT WAS RECEIVED TO DO TELEPHONE OFFICE VISIT. 55-YEAR-OLD MALE PATIENT WITH A HISTORY OF CHRONIC LOW BACK AND MAINLY LEFT LEG PAIN. THE PATIENT DESCRIBES THE PAIN CONTINUOUS, SHARP AND STABBING WITH A PAIN SCORE RANGING FROM 6-10/10 OVER THE BACK AND MAINLY THE LEFT LEG. THIS IS AFFECTING HIS ABILITY TO DO ACTIVITIES SUCH DOING HIS JOB AND CLEANING HIS HOUSE. HE HAS BEEN USING MEDICATIONS BUT THEY HAVE NOT BEEN HELPING ENOUGH AND THE PAIN IS CONSTANT. HE IS LOOKING FOR HELP, HE NEEDS ALTERNATIVES. FALL RISK SCREENING: SCREENING : NO FALLS REPORTED IN THE LAST YEAR. PAIN SCREENING: PATIENT HAS A COMPLAINT OF ACUTE OR CHRONIC PAIN :YES LOCATION OF PAIN:LOW BACK, OTHER: LEFT BUTTOCK INTENSITY OF PAIN (SCALE OF 1 TO 10):7 WHAT DOES YOUR PAIN FEEL LIKE:CONTINOUS, SHARP, STABBING DURATION:CONTINOUS PAIN IS INCREASED BY:ACTIVITIES, PROLONGED STANDING, OTHERS HARD FLOORS, SITTING PAIN IS DECREASED BY:USE OF PAIN MEDICATIONS, OTHERS WALKING, SLEEPING NURSING NOTE: -. PAIN CENTER INTAKE QUESTIONS: DO YOU HAVE A HISTORY OF MRSA? :NO DO YOU TAKE A BLOOD THINNERS? :NO DO YOU HAVE ANY BLEEDING DISORDERS? :NO ANY NEW NUMBNESS OR WEAKNESS IN YOUR LEGS OR ARMS? :NO ANY PACEMAKER,DEFIBRILLATOR, OR DORSAL COLUMN STIMULATOR? :NO DO YOU HAVE ANY RASHES OR OPEN SORES? :YES TENS UNIT RASH ARE YOU ALLERGIC TO IV DYE? :NO ARE YOU DIABETIC? :NO ANY NEW PROBLEMS WITH YOUR MEDICATIONS? :NO HAVE YOU RECEIVED A VACCINE IN THE PAST 30 DAYS? :YES IF SO WHAT VACCINE AND WHEN? SECOND COVID VACCINATION 09/30/2020 DO YOU PLAN TO RECEIVE A VACCINE IN THE NEXT 21 DAYS? :NO DO YOU NEED ANY PRESCRIPTION? :YES OXYCODONE DO YOU TAKE ANY IMMUNOSUPPRESSIVE MEDICATIONS? :YES ALLOPURINOL DO YOU HAVE ANY KIDNEY OR LIVER DISEASE? :NO IS THERE A CHANCE YOU COULD BE ? :NO ARE YOU BREAST FEEDING? :NO CURRENT MEDICATIONS TAKING METOPROLOL SUCCINATE 50 MG TABLET EXTENDED RELEASE ORALLY DAILY TAKING AMLODIPINE BESYLATE 10 MG TABLET 1/2 TABLET ORALLY ONCE A DAY TAKING ALLOPURINOL 100 MG TABLET 1 TABLET ORALLY ONCE A DAY TAKING TIZANIDINE HCL 2 MG TABLET 1 TABLET NEEDED ORALLY THREE TIMES A DAY TAKING PRAVASTATIN SODIUM 40 MG TABLET 1 TABLET ORALLY ONCE A DAY TAKING GABAPENTIN 300 MG CAPSULE 3TABS ORALLY THREE TIMES A DAY TAKING LISINOPRIL 40 MG TABLET 1 TABLET ORALLY ONCE A DAY TAKING LEVETIRACETAM 500 MG TABLET 2 TABLETS ORALLY DAILY TAKING CELEBREX 200 MG CAPSULE 1 CAPSULE WITH FOOD ORALLY BID TAKING HYDROCODONE-ACETAMINOPHEN 5-325 MG TABLET 1 TO 2 TABLET NEEDED ORALLY FOR PAIN DAILY MDD 2 TAKING MELOXICAM 7.5 MG TABLET 1/2 TAB ORALLY DAILY AM, NOTES: 0900 TAKING IBUPROFEN 800 MG TABLET 1 TABLET WITH FOOD OR MILK NEEDED ORALLY THREE TIMES A DAY MDD3 NOT-TAKING MAY HAVE - - CBD OIL ONCE DAILY NEEDED MEDICATION LIST REVIEWED AND RECONCILED WITH THE PATIENT PAST MEDICAL HISTORY HYPERTENSIVE CARDIAC VASCULAR DISEASE TACHYCARDIA MIXED HYPERLIPIDEMIA TRAUMATIC BRAIN INJURY R/T ENCEPHALITIS IN 10/2015 DJD OF LUMBAR SPINE GOUT ALLERGIES XYLOCAINE: INCREASED HR - ALLERGY SOCIAL HISTORY GENERAL: TOBACCO USE ARE YOU A:NONSMOKER LATEX QUESTIONNAIRE LATEX ALLERGY : HAVE YOU EVER DEVELOPED ANY TYPE OF REACTION AFTER HANDLING LATEX PRODUCTS SUCH RUBBER GLOVES, CONDOMS, DIAPHRAGMS, BALLOONS, SOCKS, OR UNDERWEAR?NO LATEX ALLERGY : HAVE YOU EVER DEVELOPED ANY TYPE OF REACTION DURING OR AFTER DENTAL APPOINTMENT, VAGINAL/RECTAL EXAMINATION, SURGICAL PROCEDURE, OR ANY OTHER EXPOSURE?NO LATEX RISK : HAVE YOU EVER HAD ANY DIFFICULTY BREATHING OR HIVES AFTER EATING OR HANDLING ANY FRUITS, OR VEGETABLES; SUCH KIWI, BANANAS, STONE FRUITS, OR CHESTNUTSNO LATEX RISK : DO YOU HAVE A PREVIOUS PERSONAL HISTORY OF MORE THAN NINE SURGERIES, SPINA BIFIDA, OR REPEATED CATHERIZATIONS? NO LATEX RISK : ARE YOU FREQUENTLY EXPOSED TO LATEX PRODUCTS IN YOUR OCCUPATION?NO DATE ASKED : 10/01/2020 ALCOHOL USE: YES, 1-2 ALCOHOLIC BEVERAGES A DAY.. ALCOHOL SCREENING DID YOU HAVE A DRINK CONTAINING ALCOHOL IN THE PAST YEAR?YES HOW OFTEN DID YOU HAVE SIX OR MORE DRINKS ON ONE OCCASION IN THE PAST YEAR?LESS THAN MONTHLY (1 POINT) HOW MANY DRINKS DID YOU HAVE ON A TYPICAL DAY WHEN YOU WERE DRINKING IN THE PAST YEAR?1 OR 2 (0 POINTS) HOW OFTEN DID YOU HAVE A DRINK CONTAINING ALCOHOL IN THE PAST YEAR?FOUR OR MORE TIMES A WEEK (4 POINTS) POINTS5 INTERPRETATIONPOSITIVE RECREATIONAL DRUG USE DRUG USE?NO CAFFEINE CAFFEINE USE?YES 2 CUP DAILY HOW OFTEN AND HOW MUCH? DAILY SABIANISM [id number] MORAVIAN LANGUAGE LANGUAGES SPOKEN:JAPANESE LEARNING BARRIERS / SPECIAL NEEDS CHANGE FROM LAST VISIT?NO BARRIERS TO LEARNING?NO HEARING IMPAIRED?NO VISION IMPAIRED?NO COGNITIVELY IMPAIRED?NO READINESS TO LEARN?YES LEARNING PREFERENCES?NO LEARNING CAPABILITIES PRESENT?YES EMOTIONAL BARRIERS?NO SPECIAL DEVICES?NO WINDOW CLERK NEEDED?NO DOMESTIC VIOLENCE DO YOU FEEL SAFE IN YOUR ENVIRONMENT?YES OCCUPATION: DIRECTORY ASSISTANCE OPERATOR AND BED BREAKFAST. DIET: REGULAR. EXERCISE: WALKS. MARITAL STATUS: SINGLE. OTHERS AT HOME: NONE. IMMUNIZATION PROGRAM NONE. - PFS REFERRAL NEEDED?NO CLERGY REFERRAL NEEDED?NO PUBLIC HEALTH REFERRAL NEEDED?NO WAS THE PROVIDER NOTIFIED OF ANY PERTINENT INFO? N/A HAS THE PATIENT BEEN EDUCATED REGARDING HIS/HER PLAN OF CARE?YES HAS THE PATIENT BEEN EDUCATED REGARDING PAIN, THE RISK FOR PAIN, THE IMPORTANCE OF EFFECTIVE PAIN MANAGEMENT, AND THE PAIN ASSESSMENT PROCESS?YES ADVANCE DIRECTIVE ADVANCE DIRECTIVE DISCUSSED WITH PATIENT:YES HCP FILED PT BROTHER ALEXSANDRA VILLALPANDO [phone] REVIEW OF SYSTEMS CONSTITUTIONAL: ANY RECENT FEVER NO . CHILLS NO . WEIGHT CHANGE OF UNKNOWN REASONS NO . GASTROENTEROLOGY: NEW UNEXPLAINABLE CHANGES IN BOWEL CONTROL NO . CONSTIPATION NO . GENITOURINARY: ANY NEW CHANGE IN BLADDER CONTROL? NO . NEUROLOGY: NEW ONSET DIZZINESS OR NEUROLOGICAL CHANGES NOT MENTIONED NO . NEW NUMBNESS OR PAIN PATTERNS NOT MENTIONED AND PERTINENT TO TODAY'S VISIT NO . CARDIOLOGY: NEW CHEST PRESSURE NO . PATIENT DENIES NO . RESPIRATORY: UNEXPLAINABLE COUGH NO . NEW SHORTNESS OF BREATH NO . VITAL SIGNS WT 195 LBS, HT 72 IN, BMI 26.44 INDEX, SAFE IN ENV? (Y/N) YES, REVIEWED BY: ASAF TO OBTAIN VITAL SIGNS DUE TO VIRTUAL APPOINTMENT. CADY DOUGLAS MA. EXAMINATION GENERAL: THIS IS A TELEPHONE VISIT. MRI OF THE LUMBOSACRAL SPINE DATED 04/23/2020 SHOWS BULGING DISC AT L4-L5 AND L5-S1. ASSESSMENTS LUMBAR POST-LAMINECTOMY SYNDROME - M96.1 (PRIMARY), RISK: (NULL) TREATMENT LUMBAR POST-LAMINECTOMY SYNDROME [facility] MRI SPINE,THORACIC WITHOUT [id number] CLINICAL NOTES: I DISCUSSED ALTERNATIVES WITH MR. VILLALPANDO. THE PATIENT DID AN MRI AFTER HIS SURGERY SO WE WILL TRY TO FIND THAT REPORT. THE PATIENT STATES THAT THE MEDICATION HELPS BUT IT IS NOT ENOUGH FOR HIM. WE HAVE TRIED TRANSFORAMINAL EPIDURALS THAT HAVE NOT PROVIDED THE PATIENT WITH LONG LASTING PAIN RELIEF SO WE AGREE ON DOING A SPINAL COLUMN STIMULATOR TRIAL. SO I WILL REQUEST AUTHORIZATION FOR THORACIC MRI TO SEE IF THERE IS ENOUGH SPACE IN THE EPIDURAL SPACE TO PASS THE LEADS AND A PSYCHOLOGICAL EVALUATION THAT IS REQUIRED FOR THE TRIAL. THE PATIENT IS AWARE THAT HE HAS TO BE VERY CAREFUL WHILE USING THE MEDICATION. THE LAST TIME THAT I GAVE HIM THIS MEDICATION WAS IN JULY SO HE HAS TO BE CAREFUL WHILE USING THIS MEDICATION. HE KNOWS THAT HE CANNOT DRIVE OR OPERATE MACHINERY WHILE USING THIS MEDICATION. HE IS VERY CONSCIOUS ON THE RISK OF RESPIRATORY DEPRESSION AND THINGS OF THAT NATURE. THE PATIENT IS AWARE, AND AGAIN, HE IS VERY CAREFUL SO I FEEL OKAY WITH GIVING HIM A REFILL. I WILL FOLLOW UP WITH THE PATIENT IN 1 MONTH OVER THE PHONE. THE PATEINT REPORTS UNDERSTANDING AND AGREES WITH THE PLAN. TOTAL TIME FOR THIS VISIT WAS 10 MINUTES AND 10 SECONDS. I, SURESH EAST, DOCUMENTED THE ABOVE INFORMATION ACTING A SCRIBE FOR DR. DICKERSON. I HAVE REVIEWED THE ABOVE DOCUMENT, WRITTEN BY SURESH EAST, CREDIT DIRECTOR, AND I VERIFY THAT IT IS ACCURATE. . REFERRAL TO:[facility] REASON:PLEASE EVALUATE THIS PATIENT FOR DCS TRIAL PROCEDURE CODES [id number] TELEMEDICINE PHONE E/M BY PHYS 5-10 MIN DISPOSITION & COMMUNICATION FOLLOW UP F/UP 1 MONTH OVER PHONE-DISCUSS DCS (REASON: REQUEST AUTH FOR THORACIC MRI AND PYSCH EVAL) ELECTRONICALLY SIGNED BY GONZALEZ DICKERSON MD, MD ON 10/10/2020 AT 12:55 PM EDT DISCLAIMER : THIS IS A VISIT SUMMARY EXTRACTED FROM THE [employer] CHART. IT IS NOT A COPY OF THE [employer] PROGRESS NOTE. LORENED
== END ==
LOC: M PAIN 15:00
PROVIDERS: ATTEND Anesthesiology
DX: M96.1 Postlaminectomy syndrome, not elsewhere classified (principal); Z87.820 Personal history of traumatic brain injury; Z88.4 Allergy status to anesthetic agent; Z79.899 Other long term (current) drug therapy

== ENCOUNTER → 2020-10-10 | Outpatient (CLI) | payer OTHER ==
--- NOTE | 2020-10-10 12:05 | REP ---
INDICATION: LUMBAR POST LAMINECTOMY SYNDROME. COMPARISON: None. TECHNIQUE: Sagittal and axial T1 and T2-weighted scans are acquired in the usual fashion with and without fat saturation. Sequences include spin echo, turbo spin-echo, and STIR imaging sequences. FINDINGS: Thoracic vertebral body heights are preserved alignment is normal. Cortical and medullary bone signal intensity are normal. The thoracic spinal cord is normal in course, caliber, and signal intensity on T1 and T2 weighted scans. There are mild degenerative disc changes. At T6-7 disc level, there is a small right paracentral focal disc protrusion effacing the ventral subarachnoid space. No cord compression. At T7-T8, there is a right posterior small focal disc protrusion effacing the ventral subarachnoid space.a At T8-9, there is a left posterior focal disc protrusion effacing the left ventral lateral thecal sac.a At T11-12 there is a small right posterior focal disc protrusion effacing the ventral lateral margin of the thecal sac. No cord compression at these levels. No neural foraminal lesion is appreciated. IMPRESSION: Mild degenerative disc disease. Multiple small focal disc protrusions with mild thecal sac compression but no cord compression visible. <Electronically signed by Blu Pérez > 10/10/20 1202
== END ==
LOC: M PLARAD 10:16
PROVIDERS: ATTEND Anesthesiology
DX: M96.1 Postlaminectomy syndrome, not elsewhere classified (principal); M51.24 Other intervertebral disc displacement, thoracic region

== ENCOUNTER → 2020-11-08 | Outpatient (CLI) | payer OTHER ==
--- NOTE | 2020-11-14 03:30 | ECWPNPC ---
PATIENT NAME: ELLY VILLALPANDO : 1965 GENDER: MALE VISIT DATE: 11/08/2020 DISCHARGE DATE: 11/08/20 075 VISIT LOCKED DATE TIME: PHYSICIAN: GONZALEZ DICKERSON MD RESOURCE: GONZALEZ DICKERSON MD REASON FOR APPOINTMENT 1. MRI REVIEW - PT WOOULD LIKE TO BE CALLED LATER IF POSSIBLE HISTORY OF PRESENT ILLNESS GENERAL: PERMISSION FROM PATIENT WAS RECEIVED TO DO TELEPHONE OFFICE VISIT. 55-YEAR-OLD MALE PATIENT WITH A HISTORY OF CHRONIC LOW BACK AND MAINLY LEFT LEG PAIN. THE PATIENT DESCRIBES THE PAIN SHARP, STABBING WITH A PAIN SCORE RANGING FROM 6-10/10. HE HAS PERFORMED INJECTIONS AND THE PAIN PERSISTS. HE IS ALSO USING MEDICATION MANAGEMENT AND THE PAIN PERSISTS. HE IS LOOKING FOR ALTERNATIVES. PAIN CENTER INTAKE QUESTIONS: DO YOU HAVE A HISTORY OF MRSA? :NO DO YOU TAKE A BLOOD THINNERS? :NO DO YOU HAVE ANY BLEEDING DISORDERS? :NO ANY NEW NUMBNESS OR WEAKNESS IN YOUR LEGS OR ARMS? :NO ANY PACEMAKER,DEFIBRILLATOR, OR DORSAL COLUMN STIMULATOR? :NO DO YOU HAVE ANY RASHES OR OPEN SORES? :NO ARE YOU ALLERGIC TO IV DYE? :NO ARE YOU DIABETIC? :NO ANY NEW PROBLEMS WITH YOUR MEDICATIONS? :NO HAVE YOU RECEIVED A VACCINE IN THE PAST 30 DAYS? :NO DO YOU PLAN TO RECEIVE A VACCINE IN THE NEXT 21 DAYS? :NO DO YOU NEED ANY PRESCRIPTION? :NO DO YOU TAKE ANY IMMUNOSUPPRESSIVE MEDICATIONS? :NO DO YOU HAVE ANY KIDNEY OR LIVER DISEASE? :NO IS THERE A CHANCE YOU COULD BE ? :NO ARE YOU BREAST FEEDING? :NO FALL RISK SCREENING: SCREENING : NO FALLS REPORTED IN THE LAST YEAR. PAIN SCREENING: PATIENT HAS A COMPLAINT OF ACUTE OR CHRONIC PAIN :YES LOCATION OF PAIN:LOW BACK, LEFT HIP INTENSITY OF PAIN (SCALE OF 1 TO 10):5 WHAT DOES YOUR PAIN FEEL LIKE:INTERMITTENT, BURNING, SORE, SHOOTING, STABBING PAIN IS INCREASED BY:OTHERS SITTING OR STANDING OIN HARD FLOOR NURSING NOTE: -. CURRENT MEDICATIONS TAKING METOPROLOL SUCCINATE 50 MG TABLET EXTENDED RELEASE ORALLY DAILY TAKING AMLODIPINE BESYLATE 10 MG TABLET 1/2 TABLET ORALLY ONCE A DAY TAKING ALLOPURINOL 100 MG TABLET 1 TABLET ORALLY ONCE A DAY TAKING TIZANIDINE HCL 2 MG TABLET 1 TABLET NEEDED ORALLY THREE TIMES A DAY TAKING PRAVASTATIN SODIUM 40 MG TABLET 1 TABLET ORALLY ONCE A DAY TAKING GABAPENTIN 300 MG CAPSULE 3TABS ORALLY THREE TIMES A DAY TAKING LISINOPRIL 40 MG TABLET 1 TABLET ORALLY ONCE A DAY TAKING LEVETIRACETAM 500 MG TABLET 2 TABLETS ORALLY DAILY TAKING CELEBREX 200 MG CAPSULE 1 CAPSULE WITH FOOD ORALLY BID TAKING HYDROCODONE-ACETAMINOPHEN 5-325 MG TABLET 1 TO 2 TABLET NEEDED ORALLY FOR PAIN DAILY MDD 2 TAKING MELOXICAM 7.5 MG TABLET 1/2 TAB ORALLY DAILY AM, NOTES: 0900 TAKING IBUPROFEN 800 MG TABLET 1 TABLET WITH FOOD OR MILK NEEDED ORALLY THREE TIMES A DAY MDD3 NOT-TAKING MAY HAVE - - CBD OIL ONCE DAILY NEEDED MEDICATION LIST REVIEWED AND RECONCILED WITH THE PATIENT PAST MEDICAL HISTORY HYPERTENSIVE CARDIAC VASCULAR DISEASE TACHYCARDIA MIXED HYPERLIPIDEMIA TRAUMATIC BRAIN INJURY R/T ENCEPHALITIS IN 10/2015 DJD OF LUMBAR SPINE GOUT ALLERGIES XYLOCAINE: INCREASED HR - ALLERGY SURGICAL HISTORY FISTULA REPAIR 1984 L5-S1 DISCECTOMY 05/29/2019 SOCIAL HISTORY GENERAL: TOBACCO USE ARE YOU A:NONSMOKER LATEX QUESTIONNAIRE LATEX ALLERGY : HAVE YOU EVER DEVELOPED ANY TYPE OF REACTION AFTER HANDLING LATEX PRODUCTS SUCH RUBBER GLOVES, CONDOMS, DIAPHRAGMS, BALLOONS, SOCKS, OR UNDERWEAR?NO LATEX ALLERGY : HAVE YOU EVER DEVELOPED ANY TYPE OF REACTION DURING OR AFTER DENTAL APPOINTMENT, VAGINAL/RECTAL EXAMINATION, SURGICAL PROCEDURE, OR ANY OTHER EXPOSURE?NO DATE ASKED : 10/01/2020 LATEX RISK : HAVE YOU EVER HAD ANY DIFFICULTY BREATHING OR HIVES AFTER EATING OR HANDLING ANY FRUITS, OR VEGETABLES; SUCH KIWI, BANANAS, STONE FRUITS, OR CHESTNUTSNO LATEX RISK : DO YOU HAVE A PREVIOUS PERSONAL HISTORY OF MORE THAN NINE SURGERIES, SPINA BIFIDA, OR REPEATED CATHERIZATIONS? NO LATEX RISK : ARE YOU FREQUENTLY EXPOSED TO LATEX PRODUCTS IN YOUR OCCUPATION?NO ALCOHOL USE: YES, 1-2 ALCOHOLIC BEVERAGES A DAY.. ALCOHOL SCREENING DID YOU HAVE A DRINK CONTAINING ALCOHOL IN THE PAST YEAR?YES HOW OFTEN DID YOU HAVE SIX OR MORE DRINKS ON ONE OCCASION IN THE PAST YEAR?LESS THAN MONTHLY (1 POINT) HOW MANY DRINKS DID YOU HAVE ON A TYPICAL DAY WHEN YOU WERE DRINKING IN THE PAST YEAR?1 OR 2 (0 POINTS) HOW OFTEN DID YOU HAVE A DRINK CONTAINING ALCOHOL IN THE PAST YEAR?FOUR OR MORE TIMES A WEEK (4 POINTS) POINTS5 INTERPRETATIONPOSITIVE RECREATIONAL DRUG USE DRUG USE?NO CAFFEINE CAFFEINE USE?YES 2 CUP DAILY HOW OFTEN AND HOW MUCH? 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 DIET: REGULAR. EXERCISE: WALKS. MARITAL STATUS: SINGLE. OTHERS AT HOME: NONE. IMMUNIZATION PROGRAM NONE. - PFS REFERRAL NEEDED?NO CLERGY REFERRAL NEEDED?NO PUBLIC HEALTH REFERRAL NEEDED?NO WAS THE PROVIDER NOTIFIED OF ANY PERTINENT INFO? N/A HAS THE PATIENT BEEN EDUCATED REGARDING HIS/HER PLAN OF CARE?YES HAS THE PATIENT BEEN EDUCATED REGARDING PAIN, THE RISK FOR PAIN, THE IMPORTANCE OF EFFECTIVE PAIN MANAGEMENT, AND THE PAIN ASSESSMENT PROCESS?YES ADVANCE DIRECTIVE ADVANCE DIRECTIVE DISCUSSED WITH PATIENT:YES HCP FILED PT BROTHER ALEXSANDRA VILLALPANDO [phone] HOSPITALIZATION/MAJOR DIAGNOSTIC PROCEDURE ENCEPHALITIS 10/2015 REVIEW OF SYSTEMS CONSTITUTIONAL: ANY RECENT FEVER NO . CHILLS NO . WEIGHT CHANGE OF UNKNOWN REASONS NO . GASTROENTEROLOGY: NEW UNEXPLAINABLE CHANGES IN BOWEL CONTROL NO . CONSTIPATION NO . GENITOURINARY: ANY NEW CHANGE IN BLADDER CONTROL? NO . NEUROLOGY: NEW ONSET DIZZINESS OR NEUROLOGICAL CHANGES NOT MENTIONED NO . NEW NUMBNESS OR PAIN PATTERNS NOT MENTIONED AND PERTINENT TO TODAY'S VISIT NO . CARDIOLOGY: NEW CHEST PRESSURE NO . PATIENT DENIES NO . RESPIRATORY: UNEXPLAINABLE COUGH NO . NEW SHORTNESS OF BREATH NO . VITAL SIGNS WT 196 LBS, HT 72 IN, BMI 26.58 INDEX, BP VIRTUAL NO VITALS TAKEN, SAFE IN ENV? (Y/N) YES, REVIEWED BY: KG. EXAMINATION GENERAL EXAMINATION: THE PATIENT IS ALERT, ORIENTED TIMES THREE AND COOPERATIVE. THIS IS A VIRTUAL VISIT. ASSESSMENTS LUMBAR POST-LAMINECTOMY SYNDROME - M96.1 (PRIMARY), RISK: (NULL) TREATMENT LUMBAR POST-LAMINECTOMY SYNDROME CLINICAL NOTES: I DISCUSSED ALTERNATIVES WITH MR. RODRIGUEZ. MRI OF THE LUMBAR SPINE DATED 04/23/2020 SHOWS BULGING DISC BUT NO SCARING, I DISCUSSED THE MRI WITH DR. MARIANO, PHONE NUMBER [phone]. THERE IS ENOUGH SPACE IN THE EPIDURAL SPACE TO PASS A CABLE. THORACIC MRI, I LOOKED AT THE FILMS AND THERE IS ENOUGH SPACE, BUT I WOULD STILL LIKE TO TALK TO THE RADIOLOGIST ABOUT THIS. I FEEL THAT WE ARE MISSING THE PSYCHOLOGICAL EVALUATION. WE WILL BE WORKING WITH THE [facility] AND [facility] TO TRY TO GET THIS DONE. ONCE THIS IS DONE, WE WILL REQUEST THE TRIAL. FOR NOW, WE WILL CONTINUE WITH MEDICATION MANAGEMENT. THE PATIENT IS USING HIS MEDICATIONS WITH CARE. HE IS USING HYDROCODONE ON A PRN BASIS. IF HE NEEDS A REFILL, HE WILL LET US KNOW. THE PATIENT IS VERY CAREFUL WITH THIS MEDICATION. I WILL FOLLOW UP WITH HIM OVER THE PHONE IN 6 WEEKS TO SEE WHERE WE ARE. THE TOTAL TIME FOR THIS VISIT WAS 15 MINUTES. THE PATIENT REPORTS UNDERSTANDING AND AGREES WITH THE PLAN. I, SURESH EAST, DOCUMENTED THE ABOVE INFORMATION ACTING A SCRIBE FOR DR. DICKERSON. I HAVE REVIEWED THE ABOVE DOCUMENT, WRITTEN BY SURESH EAST, MANAGER PET, AND I VERIFY THAT IT IS ACCURATE. . DISPOSITION & COMMUNICATION FOLLOW UP F/ UP WITH DR. Starkey IN 6 WEEKS TELEPHONE (REASON: DISCUSS DCS) ELECTRONICALLY SIGNED BY GONZALEZ DICKERSON MD, MD ON 11/13/2020 AT 10:16 AM EDT DISCLAIMER : THIS IS A VISIT SUMMARY EXTRACTED FROM THE [employer] CHART. IT IS NOT A COPY OF THE [employer] PROGRESS NOTE. LORENED
== END ==
LOC: M PAIN 14:00
PROVIDERS: ATTEND Anesthesiology
DX: M96.1 Postlaminectomy syndrome, not elsewhere classified (principal); Z87.820 Personal history of traumatic brain injury; Z88.4 Allergy status to anesthetic agent; Z79.899 Other long term (current) drug therapy

== ENCOUNTER → 2021-02-27 | Outpatient (CLI) | payer OTHER | LOC: M PAIN 11:30 | PROVIDERS: ATTEND Anesthesiology | DX: M96.1 Postlaminectomy syndrome, not elsewhere classified (principal); Z87.820 Personal history of traumatic brain injury; Z88.4 Allergy status to anesthetic agent; Z79.899 Other long term (current) drug therapy ==

== ENCOUNTER → 2021-10-01 | Outpatient (CLI) | payer OTHER | LOC: M PAIN 14:30 | PROVIDERS: ATTEND Anesthesiology | DX: M96.1 Postlaminectomy syndrome, not elsewhere classified (principal); Z87.820 Personal history of traumatic brain injury; Z88.4 Allergy status to anesthetic agent; Z79.899 Other long term (current) drug therapy ==

== ENCOUNTER → 2021-11-13 | Outpatient (CLI) | payer OTHER ==
[~2021-11-13] MED LIST changes: +AMLO25TA PO; +CELE1CAP9 PO; +GABA-283 PO; +HYDR-4571; +NEUR300C PO; +ROSU40TA4 PO
== END ==
LOC: M PLAIMG 06:36
PROVIDERS: ATTEND Anesthesiology
DX: M96.1 Postlaminectomy syndrome, not elsewhere classified (principal); M51.26 Other intervertebral disc displacement, lumbar region; M47.816 Spondylosis without myelopathy or radiculopathy, lumbar region; M51.24 Other intervertebral disc displacement, thoracic region

== ENCOUNTER → 2021-11-21 | Outpatient (CLI) | payer OTHER | LOC: M PAIN 16:00 | PROVIDERS: ATTEND Anesthesiology | DX: M96.1 Postlaminectomy syndrome, not elsewhere classified (principal); G89.29 Other chronic pain; Z87.820 Personal history of traumatic brain injury; Z88.4 Allergy status to anesthetic agent; Z79.899 Other long term (current) drug therapy ==

== ENCOUNTER → 2021-11-27 | Outpatient (CLI) | payer OTHER | LOC: M LABSMTC 11:45 | PROVIDERS: ATTEND Anesthesiology | DX: Z01.812 Encounter for preprocedural laboratory examination (principal); Z20.822 Contact with and (suspected) exposure to COVID-19 ==

== ENCOUNTER 2021-12-01 10:34 | Day surgery (SDC) | payer OTHER ==
[~2021-12-01] VITALS: Ht 182.9 cm; Wt 88.5 kg
[2021-12-01] VITALS (8 sets, daily range): BP systolic 130–137; BP diastolic 80–84
[~2021-12-01 10:34] MED LIST changes: +ceFAZolin SOD 2 GM in IV 1 EA IV ONE
[2021-12-01] MEDS ORDERED: LR 1,000 ML IV SCH ×2 (12:10→16:10)
[2021-12-01] MEDS ORDERED: BUPIVACAINE HCL 0.25% 30ML VIAL As Ordered ONE (14:31)
[2021-12-01] MEDS ORDERED: ISOVUE-300 61% 50ML VIAL As Ordered ONE (14:31)
[2021-12-01] MEDS ORDERED: fentaNYL 100 MCG/2 ML INJECTION As Ordered ONE (14:37)
[2021-12-01] MEDS ORDERED: MIDAZOLAM INJ 2MG/2ML VIAL (J2250 PER 1MG) As Ordered ONE (14:37)
[2021-12-01] MEDS ORDERED: ESMOLOL INJ 100MG/10ML VIAL As Ordered ONE (15:08)
[2021-12-01] MEDS ORDERED: LABETALOL 100MG/20ML VIAL As Ordered ONE (15:41)
[2021-12-01] MEDS ORDERED: PERCOCET 5MG/325MG TAB PO PRN (16:10)
[2021-12-01] MEDS ORDERED: NORCO, ANEXSIA 5/325MG TABLET (HYDROcodone/ACETAMINOPHEN) PO PRN (17:45)
[2021-12-01] MEDS: ceFAZolin SOD 1 GM in D5W MINI-BAG PLUS 50 ML IV SCH (20:12)
[2021-12-01] MEDS ORDERED: METOPROLOL SUCC (TopROL XL) 50MG **XL** TAB PO SCH (21:00)
[2021-12-01] MEDS ORDERED: ROSUVASTATIN 10 MG TAB (CRESTOR) PO SCH (21:00)
[2021-12-01] MEDS ORDERED: ACETAMINOPHEN TAB 650MG DOSE (2X325MG) PO PRN (22:10)
[2021-12-02] MEDS: ceFAZolin SOD 1 GM in D5W MINI-BAG PLUS 50 ML IV SCH (01:22)
[2021-12-02 02:00] VITALS: BP 124/73
[2021-12-02 06:00] VITALS: BP 141/84
[2021-12-02] MEDS ORDERED: allopurinoL 100 MG TAB PO SCH (09:00)
[2021-12-02] MEDS ORDERED: lisinopriL 40MG TAB PO SCH (09:00)
== END 2021-12-02 10:45 | disposition home or self-care (01) ==
LOC: M SDC 10:34 → M MS5PR 16:55 → M SDC 12-02 10:45
PROVIDERS: ATTEND Anesthesiology
DX: M96.1 Postlaminectomy syndrome, not elsewhere classified (principal); I10 Essential (primary) hypertension; E78.5 Hyperlipidemia, unspecified; K21.9 Gastro-esophageal reflux disease without esophagitis; M10.9 Gout, unspecified; Z79.899 Other long term (current) drug therapy; Z88.4 Allergy status to anesthetic agent
CPT/HCPCS: 63650; 76000; 96365; 96366; C1778; J0690; J2250; J3010; Q9967

== ENCOUNTER → 2021-12-05 | Outpatient (CLI) | payer OTHER ==
[~2021-12-05] MED LIST changes: -ceFAZolin SOD 2 GM in IV 1 EA IV ONE
== END ==
LOC: M PAIN 10:15
PROVIDERS: ATTEND Anesthesiology
DX: M96.1 Postlaminectomy syndrome, not elsewhere classified (principal); G89.29 Other chronic pain; Z87.820 Personal history of traumatic brain injury; Z88.4 Allergy status to anesthetic agent; Z79.899 Other long term (current) drug therapy
CPT/HCPCS: 76000; G0463

== ENCOUNTER → 2022-03-10 | Outpatient (CLI) | payer OTHER | LOC: M PAIN 14:45 | PROVIDERS: ATTEND Nurse Practitioner Family | DX: M96.1 Postlaminectomy syndrome, not elsewhere classified (principal); G89.29 Other chronic pain; Z87.820 Personal history of traumatic brain injury; Z88.4 Allergy status to anesthetic agent; Z79.899 Other long term (current) drug therapy ==

== ENCOUNTER → 2022-06-10 | Outpatient (CLI) | payer OTHER | LOC: M PAIN 14:45 | PROVIDERS: ATTEND Anesthesiology | DX: M96.1 Postlaminectomy syndrome, not elsewhere classified (principal); G89.29 Other chronic pain; Z87.820 Personal history of traumatic brain injury; Z88.4 Allergy status to anesthetic agent; Z79.899 Other long term (current) drug therapy ==

== ENCOUNTER → 2022-10-27 | Outpatient (CLI) | payer OTHER | LOC: M RAD 16:48 | PROVIDERS: ATTEND Internal Medicine | DX: N18.30 Chronic kidney disease, stage 3 unspecified (principal) ==

== ENCOUNTER → 2024-03-27 | Outpatient (REF) | payer OTHER ==
[~2024-03-27] MED LIST changes: +CELE0.09 PO; -CELE1CAP9 PO; -GABA-283 PO; +GABA-284 PO; -ROSU40TA4 PO; +ROSU40TA81 PO
[2024-03-27 17:26] LABS: COMPLEMENT C4 20.5 MG/DL (12-36)
[2024-03-27 17:39] LABS: PROTHROMBIN TIME 12.9 SECONDS (12.5-14.5)
== END ==
LOC: M LAB REF 16:55
PROVIDERS: ATTEND Internal Medicine Nephrology
DX: R80.9 Proteinuria, unspecified (principal); R31.9 Hematuria, unspecified

== ENCOUNTER → 2024-04-10 | Outpatient (CLI) | payer OTHER ==
[~2024-04-10] MED LIST changes: +ACETAMINOPHEN 325 MG TAB PO PRN; +MIDAZOLAM INJ 2MG/2ML VIAL As Ordered ONE; +NS 1,000 ML IV SCH; +PERCOCET 5MG/325MG TAB PO PRN; +THROMBIN 5,000 UNITS VIAL TOP ONE; +fentaNYL 100 MCG/2 ML INJECTION As Ordered ONE
[2024-04-10 10:47] VITALS: TEMP 98.7
[2024-04-10 14:20] VITALS: BP 134/71; O2SAT 98
== END ==
LOC: M IRPRO 10:33
PROVIDERS: ATTEND Internal Medicine Nephrology
DX: R80.9 Proteinuria, unspecified (principal)
CPT/HCPCS: 50200; 77012; 88300; 99152; 99153; J0665; J2250; J3010

== ENCOUNTER → 2025-02-08 | Outpatient (CLI) | payer OTHER ==
[~2025-02-08] MED LIST changes: -ACETAMINOPHEN 325 MG TAB PO PRN; +LISI40TA10 PO; -LISI40TA4 PO; -MIDAZOLAM INJ 2MG/2ML VIAL As Ordered ONE; -NS 1,000 ML IV SCH; -PERCOCET 5MG/325MG TAB PO PRN; -PRAV40TA2 PO; +PRAV40TA85 PO; -THROMBIN 5,000 UNITS VIAL TOP ONE; -fentaNYL 100 MCG/2 ML INJECTION As Ordered ONE
[2025-02-08 13:29] LABS: BASO # 0.0 10^3/uL (0.0-0.2); BASO % 0.5 % (0.0-1.0); EOS # 0.5 10^3/uL (0.0-0.5); EOS % 5.6 % (0.0-3.0); LYMPH # 1.7 10^3/uL (1.5-5.0); LYMPH % 19.7 % (24.0-44.0); MONO # 1.0 10^3/uL (0.0-0.8); MONO % 11.7 % (2.0-8.0); NEUTROPHILS # 5.4 10^3/uL (1.5-8.5); NEUTROPHILS % 62.0 % (36.0-66.0); PLATELET COUNT, AUTOMATED 251 10^3/uL (150-450)
[2025-02-08 13:55] LABS: ALT/SGPT 21 U/L (7.0-40); AST/SGOT 28 U/L (<34); CALCIUM LEVEL 9.5 MG/DL (8.5-10.1); CARBON DIOXIDE LEVEL 29 MMOL/L (20-31); CHLORIDE LEVEL 99 MMOL/L (98-107); CREATININE FOR GFR 1.12 MG/DL (0.70-1.30); GLOMERULAR FILTRATION RATE 75.7 (>56); PHOSPHORUS LEVEL 3.0 MG/DL (2.5-4.9); POTASSIUM SERUM 3.9 MMOL/L (3.5-5.1); SODIUM LEVEL 136 MMOL/L (136-145)
[2025-02-08 14:27] LABS: HIV 1&2 SCREEN NEGATIVE (NEGATIVE)
[2025-02-08 14:35] LABS: HEPATITIS C VIRUS ABY INDEX < 0.02 INDEX (<0.8)
== END ==
LOC: M LAB 12:29
PROVIDERS: ATTEND Nurse Practitioner Family
DX: R21 Rash and other nonspecific skin eruption (principal); Z11.59 Encounter for screening for other viral diseases